=== PATIENT | male | born 1940 | race Caucasian/White ===

== ENCOUNTER 2018-11-16 04:49 | Emergency (ER) | payer MEDICARE, OTHER, SELFPAY ==
[2018-11-16] VITALS (15 sets, daily range): BP systolic 123–185; BP diastolic 66–102; PULSE 56–89; RESP 15–27; TEMP 36.1–36.6; O2SAT 95–100; BMI 22.5
--- NOTE | 2018-11-16 04:51 | ED.RN ---
CALLED FOR EKG, NO OLD EKGS IN MUSE
--- NOTE | 2018-11-16 05:09 | EKG12_ITS ---
Test Reason : CP Blood Pressure : / mmHG Vent. Rate : 059 BPM Atrial Rate : 059 BPM P-R Int : 158 ms QRS Dur : 076 ms QT Int : 404 ms P-R-T Axes : 039 027 036 degrees QTc Int : 399 ms Sinus bradycardia Otherwise normal ECG Confirmed by FLOYD CHAMPAGNE, MADHAVI ([id number]), pictures editor SUSIE MATHEW ([id number]) on 11/20/2018 11:21:21 A M Referred By: VIRAL Confirmed By:CHANG BARRIENTOS MD
--- NOTE | 2018-11-16 05:09 | RAD_ITS ---
HISTORY: Chest Pain ADDITIONAL HISTORY: None provided. COMPARISON: None TECHNIQUE: Frontal chest radiograph. Number of images including paperwork: 1 FINDINGS: LUNGS AND PLEURA: No consolidation, mass or pleural effusion. CARDIAC SILHOUETTE: Unremarkable. MEDIASTINUM AND KARI: Aortic calcification and tortuosity. UPPER ABDOMEN: Unremarkable. SKELETON AND SOFT TISSUES: No acute findings. Degenerative changes. OTHER DEVICES AND HARDWARE: None. RAD/Chest 1 View (Portable) IMPRESSION: No acute cardiopulmonary abnormality. at 0604 Reported and signed by: Martha Rubin MD Electronically Signed: Martha Rubin MD at 6:04 EDT Tel , Service support ,
[2018-11-16] MEDS: 0.9% Normal Saline 1,000 ML 1000 ML IV (05:26)
[2018-11-16 05:28] LABS: Absolute Lymphocyte Count 1.51 X10^3/uL (0.83-4.51); Absolute Neutrophil Count 2.8 X10^3/uL (2.0-7.7); Basophil# 0.05 X10^3/uL; Basophil% 0.9 % (0-1); Eosinophil# 0.17 X10^3/uL; Eosinophils% 3.2 % (0-5); Hematocrit 37.5 % (40-54); Hemoglobin 13.2 g/dL (13.0-16.5); Lymphocyte # 1.51 X10^3/ul (4.0); Lymphocyte % 28.7 % (19-41); Mean Corp Hgb Conc 35.2 g/dL (32-36); Mean Corpuscular Hgb 30.6 pg (27.0-32.0); Mean Platelet Vol. 10.8 fl (6.2-12.0); Monocyte# 0.69 X10^3/uL; Monocyte% 13.1 % (0-10); NRBC Flagged by Analyzer 0 % (0-5); Neutrophil # 2.83 X10^3/uL (2.7-7.7); Neutrophil % 53.7 % (47-70); Platelet Count 168 K/mm3 (150-450); RBC Distribution Width CV 13.2 % (11.6-14.6); RBC Distribution Width SD 41.6 fl (35.1-43.9); Red Blood Count 4.31 M/mm3 (4.6-6.2); White Blood Count 5.3 K/mm3 (4.4-11.0)
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
[2018-11-16 05:45] LABS: Red Blood Cells-Urine 0 SEEN /hpf (0-5); Squamous Epithelial Cells - UA 0 SEEN /hpf (0-5)
[2018-11-16 05:46] LABS: Color, Urine Yellow (Yellow); Glucose, Dipstick Normal (Normal); Ketone-Dipstick 5 mg/dl (Negative); Leukocyte Esterase-Dipstick Negative /ul (Negative); Nitrite-Dipstick Negative (Negative); Occult Blood-Urine Negative /ul (Negative); Protein-Dipstick Negative (Negative); Urine Bilirubin Dipstick Negative (Negative); Urine Clarity Clear (Clear); Urine Urobilinogen Normal (Normal)
[2018-11-16 05:57] LABS: Anion Gap 11 (5-15); BUN 41 mg/dL (7-18); BUN/Creat Ratio 24.1 RATIO (10-20); Calcium,Total 9.6 mg/dL (8.5-10.1); Chloride 110 mmol/L (98-107); EST Glomerular Filtration Rate 42 mL/min (>60); Est Glom Filt Rate - Afr Amer 50 mL/min (>60); Estimated Creatinine Clearance 32.11 ml/min; Glucose 138 mg/dL (74-106); Potassium 5.2 mmol/L (3.5-5.1); Sodium Level 139 mmol/L (136-145)
[2018-11-16 06:04] LABS: Bacteria RARE /hpf (None Seen); White Blood Cells 0-5 SEEN /hpf (0-5)
[2018-11-16 06:05] LABS: Mucous, Urine RARE /hpf (<or=2+)
--- NOTE | 2018-11-16 07:07 | CT_ITS ---
STUDY: CT BRAIN WITHOUT CONTRAST REASON FOR EXAM: Male, 77 years old. Confusion RADIATION DOSAGE (If Supplied By Facility): CTDIvol = ( 44.99 ) mGy, DLP = ( 745.49 ) mGycm TECHNIQUE: Transaxial CT imaging of the brain was performed without administration of intravenous contrast material. Individualized dose optimization techniques were used for this CT. COMPARISON: No relevant priors. FINDINGS: Normal soft tissue structures. Normal calvarium. There is mild cerebral atrophy with widening of the extra-axial spaces and ventricular dilatation. There are areas of decreased attenuation within the white matter tracts of the supratentorial brain, consistent with microvascular disease changes. Normal basal ganglia and thalami. Normal brainstem. There is mild cerebellar atrophy. There is no intracranial hemorrhage. There are no findings of an acute ischemic infarction. Normal visualized paranasal sinuses. Chronic change of the bilateral mastoid air cells. CT/Brain/Head without Contrast IMPRESSION: Chronic involutional changes of the brain. No acute intracranial process. Chronic change of bilateral mastoid air cells. Electronically Signed: Blair Oh MD at 8:28 EDT Tel [phone], Service support ,
[2018-11-16 07:30] LABS: AST(SGOT) 24 U/L (15-37); Alanine Aminotransfer ALT/SGPT 19 U/L (16-61); Albumin, Serum 3.8 g/dL (3.2-5.0); Alkaline Phosphatase 56 U/L (45-117); Bilirubin, Direct 0.15 mg/dL (0.00-0.30); Globulin 3.1 g/dL (2.2-4.2); Protein, Total 6.9 g/dL (6.4-8.2)
[2018-11-16] MEDS: Acetaminophen 325 MG Tablet 650 MG PO (07:32)
[2018-11-16] MEDS: 0.9% Normal Saline 1,000 ML 150 ML IV (07:32)
[2018-11-16 07:47] LABS: Amphetamine Urine VISTA NEGATIVE (<1000 ng/mL); Barbiturate Urine VISTA NEGATIVE (< 200 ng/mL); Benzodiazepine Urine VISTA NEGATIVE (< 200 ng/mL); Cocaine Urine VISTA NEGATIVE (< 300 ng/mL); Ecstacy Urine VISTA NEGATIVE (< 500 ng/mL); Methadone Urine VISTA NEGATIVE (< 300 ng/mL); PCP Urine VISTA NEGATIVE (< 25 ng/mL); THC Urine VISTA NEGATIVE (< 50 ng/mL); Vista UDS pH Range 5
--- NOTE | 2018-11-16 08:12 | EKG12_ITS ---
Test Reason : CP Blood Pressure : / mmHG Vent. Rate : 060 BPM Atrial Rate : 060 BPM P-R Int : 168 ms QRS Dur : 070 ms QT Int : 428 ms P-R-T Axes : 051 025 059 degrees QTc Int : 428 ms Normal sinus rhythm Normal ECG Confirmed by FLOYD CHAMPAGNE, MADHAVI ([id number]), social media editor SUSIE MATHEW ([id number]) on 11/20/2018 11:21:35 A M Referred By: HUGH Confirmed By:CHANG BARRIENTOS MD
[2018-11-16 08:24] LABS: Thyroid Stim Hormone (TSH) 1.24 uIU/mL (0.358-3.74)
[2018-11-16 08:27] LABS: Alcohol, Blood (Medical)-Serum < 3.0 mg/dL
[2018-11-16] MEDS: Mag Hydrox/Al Hydrox/Simeth 30 ML UDC PO (08:41)
--- NOTE | 2018-11-16 08:53 | ED.RN ---
PT VOMITING AFTER TAKING LIDOCAINE AND MYLANTA-DR SCOTT AWARE-PRESENT IN ROOM.
--- NOTE | 2018-11-16 17:23 | ED.RN ---
daughter was called at pt request. she was informed of pt plan of care and his concerns about having no visitors. daughter stated we have to take the dog to the vet then we will be there. message given to patient. abbey griffith rn
== END 2018-11-16 19:46 ==
PROVIDERS: Emergency Provider Emergency Medicine; Family Provider Internal Medicine; PCP Internal Medicine
DX: R07.9 Chest pain, unspecified (principal); G30.9 Alzheimer's disease, unspecified; F02.81 Dementia in other diseases classified elsewhere, unspecified severity, with behavioral disturbance; I25.10 Atherosclerotic heart disease of native coronary artery without angina pectoris; E11.22 Type 2 diabetes mellitus with diabetic chronic kidney disease; I12.9 Hypertensive chronic kidney disease with stage 1 through stage 4 chronic kidney disease, or unspecified chronic kidney disease; N18.9 Chronic kidney disease, unspecified; K21.9 Gastro-esophageal reflux disease without esophagitis; E78.00 Pure hypercholesterolemia, unspecified; F32.9 Major depressive disorder, single episode, unspecified; Z86.73 Personal history of transient ischemic attack (TIA), and cerebral infarction without residual deficits; Z95.1 Presence of aortocoronary bypass graft; Z79.82 Long term (current) use of aspirin; Z79.84 Long term (current) use of oral hypoglycemic drugs; Z79.02 Long term (current) use of antithrombotics/antiplatelets; Z79.899 Other long term (current) drug therapy
CPT/HCPCS: 70450; 71045; 80048; 80076; 80307; 80320; 81001; 84443; 84484; 85025; 93005; 96360; 96361; 99285; J7030; A4216; G0480

== ENCOUNTER 2019-03-29 12:51 | Emergency (ER) | payer MEDICARE, OTHER, SELFPAY ==
[2018-11-16 04:50] VITALS: BMI 22.5
[2019-03-29 12:53] VITALS: BP 125/65; PULSE 54; RESP 14; TEMP 36.8; O2SAT 94; BMI 28.4
--- NOTE | 2019-03-29 13:20 | CT_ITS ---
STUDY: CT BRAIN WITHOUT CONTRAST REASON FOR EXAM: Male, 78 years old. FALL OUT OF CHAIR AT [facility] -- CONTUSION TO BACK OF HEAD, NO LOC,ON THINNERS RADIATION DOSAGE (If Supplied By Facility): CTDIvol = ( 60.81 ) mGy, DLP = ( 998.67 ) mGycm TECHNIQUE: Transaxial CT imaging of the brain was performed without administration of intravenous contrast material. Individualized dose optimization techniques were used for this CT. COMPARISON: No relevant priors. FINDINGS: Normal soft tissue structures. Normal calvarium. There is moderate cerebral atrophy with widening of the extra-axial spaces and ventricular dilatation. There are areas of decreased attenuation within the white matter tracts of the supratentorial brain, consistent with microvascular disease changes. Normal basal ganglia and thalami. Normal brainstem. Normal cerebellum. There is no intracranial hemorrhage. There is no large vessel territory ischemia/edema. Review of intracranial vessels suggest a 3.9 mm aneurysm or infundibulum at the region of the right P1 vascular segment. Normal visualized paranasal sinuses. CT/Brain/Head without Contrast IMPRESSION: No acute intracranial pathology. Potential 3.9 mm aneurysm or infundibulum at the region of the distal right P1 vascular segment. Volume loss/atrophy, felt age-appropriate. Findings involving bilateral supratentorial periventricular white matter are nonspecific but most likely represent a manifestation of chronic small vessel ischemia. Electronically Signed: Bob Charles MD at 14:00 EST , Service support ,
--- NOTE | 2019-03-29 13:20 | CT_ITS ---
STUDY: CT CERVICAL SPINE WITHOUT CONTRAST REASON FOR EXAM: Male, 78 years old. FELL OUT OF CHAIR AT [facility] -- CONTUSION TO BACK OF HEAD,NO LOC, ON THINNERS -- HX-PROSTATE CA RADIATION DOSAGE (If Supplied By Facility): CTDIvol = ( 60.81 ) mGy, DLP = ( 998.67 ) mGycm TECHNIQUE: High resolution transaxial imaging was performed without contrast material. Sagittal and coronal images were reconstructed. Individualized dose optimization techniques were used for this CT. COMPARISON: None FINDINGS: There is straightening of the cervical spine without listhesis. There is moderate to severe diffuse spondylosis. There is moderate C3-C4, C4-C5 and C5-C6 degenerative disc disease. There is no acute fracture lucency, cortical step-off or acute compression deformity. Diffuse vertebral body sclerosis involves the mid and inferior aspect of C4 and the upper/subendplate region of C5. This may be consistent with blastic metastasis in this patient with provided clinical history of prostate cancer. Normal visualized soft tissue structures. CT/Spine Cervical without Contras IMPRESSION: No CT evident acute traumatic osseous pathology. Spondylosis and degenerative disc disease. 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 Electronically Signed: Bob Charles MD at 14:07 EST , Service support ,
[2019-03-29 13:44] VITALS: BP 139/67; O2SAT 96
[2019-03-29 14:21] VITALS: PULSE 84; RESP 16; O2SAT 98
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
[2019-03-29 14:56] VITALS: BP 148/78
--- NOTE | 2019-03-29 15:00 | ED.RN ---
report called to Maryellen at [facility]. pt and are in waiting room waiting for daughter to pick them up and take pt back to [facility].
== END 2019-03-29 14:59 | disposition home or self-care (01) ==
PROVIDERS: Emergency Provider Emergency Medicine; Family Provider Internal Medicine; PCP Internal Medicine
DX: S00.03XA Contusion of scalp, initial encounter (principal); W50.0XXA Accidental hit or strike by another person, initial encounter; Y93.9 Activity, unspecified; Y92.9 Unspecified place or not applicable; Z85.46 Personal history of malignant neoplasm of prostate; Z79.02 Long term (current) use of antithrombotics/antiplatelets
CPT/HCPCS: 70450; 72125; 99284

== ENCOUNTER → 2019-04-11 13:38 | Outpatient (CLI) | payer MEDICARE, OTHER, SELFPAY ==
[2019-03-29 12:53] VITALS: BMI 28.4
--- NOTE | 2019-04-11 13:44 | CT_ITS ---
STUDY: CT SOFT TISSUE NECK WITH CONTRAST REASON FOR EXAM: Male, 78 years old. PROSTATE CANCER 18 YEARS AGO. PROSTATE REMOVED WITH RADIATION. EVALUATE FOR METS RADIATION DOSAGE (If Supplied By Facility): CTDIvol = ( 17.10 ) mGy, DLP = ( 1172.52 ) mGycm TECHNIQUE: The patient was scanned in a multi-detector CT scanner. High resolution transaxial imaging was performed following intravenous administration of IV 100mL Isovue-300. Sagittal and coronal images were reconstructed. Individualized dose optimization techniques were used for this CT. COMPARISON: None. FINDINGS: Normal bilateral parotid glands. Normal bilateral housing installer spaces. Normal bilateral parapharyngeal spaces. Normal bilateral carotid spaces. Normal bilateral sublingual and submandibular glands and spaces. Normal visualized nasopharynx. Normal retropharyngeal space. Normal perivertebral space. Normal visualized bilateral faucial tonsils. The visualized tongue, tongue base and oropharynx are normal. The visualized cervical lymph nodes (levels I-) are within normal size limits, and maintain normal morphology. There is no demonstrated solid or cystic mass lesion. There is no abnormal contrast enhancement. Normal epiglottis, bilateral vallecula and hypopharynx. The pre-epiglottic and paraglottic adipose spaces are normal. Normal visualized bilateral piriform sinuses, aryepiglottic folds, vocal cords, and arytenoid-cricoid articulations. Normal subglottic trachea. Normal bilateral lobes of the thyroid gland. Normal visualized pulmonary apices. Normal visualized paranasal sinuses. There is diffuse endplate spondylosis of the cervical spine. There are sclerotic changes of the C4 and C5 vertebral bodies. CT/Soft Tissue Neck WITH Contrast IMPRESSION: Diffuse degenerative changes of the cervical spine. Sclerotic changes of the C4 and C5 vertebral bodies raising the suspicion of metastatic disease. There is no evidence of cervical mass or adenopathy. Electronically Signed: Liam Clayton MD at 21:04 EST , Service support ,
--- NOTE | 2019-04-11 13:44 | CT_ITS ---
STUDY: CT CHEST WITH CONTRAST REASON FOR EXAM: Male, 78 years old. PROSTATE CANCER 18 YEARS AGO . REMOVED PROSTATE AND RADIATION. EVALUATE FOR METS RADIATION DOSAGE (If Supplied By Facility): CTDIvol = ( 17.10 ) mGy, DLP = ( 1172.52 ) mGycm TECHNIQUE: Transaxial imaging was performed following intravenous administration of IV 100mL Isovue-300. Individualized dose optimization techniques were used for this CT. COMPARISON: None. FINDINGS: The lungs are normal. There is no demonstrated pleural abnormality. Coronary arterial stents are noted. Normal mediastinum. There is a right infrahilar nodule or node measuring 1.7 x 1.9 cm. This is inferior to the inferior right pulmonary vein. Normal enhanced pulmonary arteries. There are calcified plaques of the thoracic aorta. There are diffuse degenerative changes of the visualized thoracolumbar spine. There is no evidence of osseous metastatic disease. Cholelithiasis is noted. CT/Chest WITH Contrast IMPRESSION: There is a right infrahilar node or nodule inferior to the inferior right pulmonary vein measuring 1.7 x 1.9 cm. If clinically indicated, a PET scan may be helpful for further evaluation. Coronary arterial stents are noted. There are diffuse degenerative changes of the visualized thoracolumbar spine. There is no evidence of osseous metastatic disease. Cholelithiasis. Electronically Signed: Liam Clayton MD at 20:51 EST , Service support ,
[2019-04-11 14:01] LABS: CREATININE FINGERSTICK 1.2 mg/dL (0.70-1.30)
== END ==
PROVIDERS: Family Provider Internal Medicine; PCP Internal Medicine; Referring Provider Psychiatry & Neurology Neurology; Visit Provider Psychiatry & Neurology Neurology
DX: C79.9 Secondary malignant neoplasm of unspecified site (principal)
CPT/HCPCS: 70491; 71260; Q9967

== ENCOUNTER 2019-04-23 16:58 | Emergency (ER) | payer MEDICARE, OTHER, SELFPAY ==
[2019-04-23 16:58] VITALS: BP 166/88; PULSE 57; RESP 18; TEMP 36.6; O2SAT 98; BMI 26.6
--- NOTE | 2019-04-23 17:19 | EKG12_ITS ---
Test Reason : NUMBNESS/TINGLING Blood Pressure : / mmHG Vent. Rate : 055 BPM Atrial Rate : 055 BPM P-R Int : 184 ms QRS Dur : 066 ms QT Int : 442 ms P-R-T Axes : 025 017 031 degrees QTc Int : 422 ms Sinus bradycardia Otherwise normal ECG Confirmed by MARTIN CHAMPAGNE, JESUSITA ([id number]), editor department SUSIE MATHEW ([id number]) on 04/25/2019 1:42:33 PM Referred By: JEZ Confirmed By:JESUSITA SALAZAR MD
--- NOTE | 2019-04-23 17:19 | CT_ITS ---
STUDY: CT BRAIN WITHOUT CONTRAST REASON FOR EXAM: Male, 78 years old. RIGHT ARM PARASTHESIS FOR WEEKS -- HX:HTN,SEIZURES,DIABETES,MD,PROSTATE CANCER RADIATION DOSAGE (If Supplied By Facility): CTDIvol = ( 44.99 ) mGy, DLP = ( 779.24 ) mGycm TECHNIQUE: Transaxial CT imaging of the brain was performed without administration of intravenous contrast material. Individualized dose optimization techniques were used for this CT. COMPARISON: Prior study March 29, 2019 FINDINGS: Normal soft tissue structures. Normal calvarium. There is mild cerebral atrophy with widening of the extra-axial spaces and ventricular dilatation. There are areas of decreased attenuation within the white matter tracts of the supratentorial brain, consistent with microvascular disease changes. Normal basal ganglia and thalami. Normal brainstem. Normal cerebellum. There is no intracranial hemorrhage. There are no findings of an acute ischemic infarction. Normal visualized paranasal sinuses. CT/Brain/Head without Contrast IMPRESSION: Chronic involutional changes of the brain. Electronically Signed: Liam Clayton MD at 18:24 EST , Service support ,
--- NOTE | 2019-04-23 17:22 | RAD_ITS ---
STUDY: X-RAY CHEST REASON FOR EXAM: Male, 78 years old. WEAKNESS TECHNIQUE: Single AP portable view of the chest. COMPARISON: Prior study of 11/16/2018 FINDINGS: The lungs are clear and expanded. There is no demonstrated pleural abnormality. Normal size heart. Normal mediastinum and seter. Normal visualized pulmonary arteries. There are calcified plaques of the aortic arch. Normal visualized thoracic spine. Normal visualized ribs, clavicles, and shoulders. There is no demonstrated abnormality of the visualized soft tissue structures of the upper abdomen. RAD/Chest 1 View IMPRESSION: Calcific plaques of the aortic arch. No acute cardiopulmonary disease process is seen. Electronically Signed: Liam Clayton MD at 17:48 EST , Service support ,
[2019-04-23 17:44] VITALS: O2SAT 98
[2019-04-23 17:46] LABS: Bedside Glucose 73 mg/dL (70-110)
[2019-04-23 17:48] LABS: Absolute Lymphocyte Count 1.65 X10^3/uL (0.83-4.51); Absolute Neutrophil Count 4.5 X10^3/uL (2.0-7.7); Basophil# 0.04 X10^3/uL; Basophil% 0.6 % (0-1); Eosinophil# 0.25 X10^3/uL; Eosinophils% 3.5 % (0-5); Hemoglobin 13.8 g/dL (13.0-16.5); Lymphocyte # 1.65 X10^3/ul (4.0); Lymphocyte % 22.9 % (19-41); Mean Corp Hgb Conc 33.7 g/dL (32-36); Mean Corpuscular Hgb 29.3 pg (27.0-32.0); Mean Platelet Vol. 10.4 fl (6.2-12.0); Monocyte# 0.73 X10^3/uL; Monocyte% 10.1 % (0-10); NRBC Flagged by Analyzer 0 % (0-5); Neutrophil # 4.53 X10^3/uL (2.7-7.7); Neutrophil % 62.6 % (47-70); Platelet Count 208 K/mm3 (150-450); RBC Distribution Width CV 13.6 % (11.6-14.6); Red Blood Count 4.71 M/mm3 (4.6-6.2); White Blood Count 7.2 K/mm3 (4.4-11.0)
[2019-04-23 18:00] LABS: International Normalized Ratio 1.1
[2019-04-23 18:07] LABS: Anion Gap 3 (5-15); BUN 13 mg/dL (7-18); BUN/Creat Ratio 8.7 RATIO (10-20); Calcium,Total 9.8 mg/dL (8.5-10.1); Chloride 105 mmol/L (98-107); EST Glomerular Filtration Rate 48 mL/min (>60); Est Glom Filt Rate - Afr Amer 58 mL/min (>60); Estimated Creatinine Clearance 36.04 ml/min; Glucose 59 mg/dL (74-106); Potassium 4.1 mmol/L (3.5-5.1); Sodium Level 139 mmol/L (136-145)
--- NOTE | 2019-04-23 20:37 | ED.DCSUM_ITS ---
- ER Visit Summary Date of Service: 04/23/19 Chief Complaint: Paresthesias History of Present Illness: The patient is a 78 M with right hand paresthesias. These have been going on for weeks, but that patient has baseline dementia and difficulty with his history. Family noticed that he was not using his right hand today. The patient says it is secondary to the paresthesias. The patient has recently been imaged. He has a cerebral aneurysm which is being monitored nonoperatively. He also has some cervical spine changes which are concerning for malignancy, and this is also being managed as an outpatient. He is awaiting a PET scan. Denies any other neurologic symptoms or complaints. Denies any o ther associated complaints. Physical Examination: Afebrile and vital signs unremarkable. NIH stroke scale is 1 for right arm paresthesias. Otherwise his exam is unremarkable. Test Results: EKG showed sinus rhythm. Rate of 55. No sign of ischemia or infarction pattern. CBC, BMP, coags, troponin unremarkable. Chest x-ray showed calcified aortic arch. CT brain showed chronic changes. Emergency Department Course and Treatment: Family was concerned for intermittent loss of function of his right arm. He has a history of stroke. They were concerned for stroke. His work-up so far was unremarkable. I reviewed his previous imaging. It seems like his symptoms might be related to his cervical spine lesions. I am recommending further imaging to rule out stroke and other spinous processes. I recommended admission for MRI. I spoke to the hospitalist who felt that the patient should go to a facility with spine surgery capabilities. I advised the family and patient of this, and they declined transfer. They would like to follow-up as an outpatient. I did attempt to contact his PCP, but I was unsuccessful at the time of this dictation. Treatment Plan: As above Disposition: Discharge Impression: 1. Right arm paresthesias This note was generated with [employer] dictation software. It may contain incorrect words, spelling, and punctuation that were not noted in review of the chart prior to signing ED Disposition - Plan for ED Patient: Referrals: Praveen Mcgowan [Primary Care Provider] -
--- NOTE | 2019-04-23 20:41 | ED.DEP ---
ED Disposition - Plan for ED Patient: Instructions: Paraesthesias Referrals: Praveen Mcgowan [Primary Care Provider] -
[2019-04-23 20:52] VITALS: BP 174/77; PULSE 56; RESP 22; O2SAT 96
== END 2019-04-23 20:52 | disposition home or self-care (01) ==
LOC: ED 17:27
PROVIDERS: Emergency Provider Emergency Medicine; PCP Internal Medicine
DX: R20.2 Paresthesia of skin (principal); I67.1 Cerebral aneurysm, nonruptured; I70.0 Atherosclerosis of aorta; F03.90 Unspecified dementia, unspecified severity, without behavioral disturbance, psychotic disturbance, mood disturbance, and anxiety; Z86.73 Personal history of transient ischemic attack (TIA), and cerebral infarction without residual deficits; Z79.82 Long term (current) use of aspirin; Z79.02 Long term (current) use of antithrombotics/antiplatelets; Z79.899 Other long term (current) drug therapy; Z87.891 Personal history of nicotine dependence
CPT/HCPCS: 70450; 71045; 80048; 82962; 84484; 85025; 85610; 85730; 93005; 99285; A4216

== ENCOUNTER 2019-04-27 18:05 | Inpatient (IN) | payer MEDICARE, OTHER, SELFPAY ==
[2019-04-27] VITALS (8 sets, daily range): BP systolic 127–175; BP diastolic 68–95; PULSE 64–75; RESP 16–29; TEMP 36.1–36.6; O2SAT 94–955; BMI 24.8; BMI 25.0; BMI 25.1
--- NOTE | 2019-04-27 18:27 | EKG12_ITS ---
Test Reason : DYSRHYTHMIA Blood Pressure : / mmHG Vent. Rate : 062 BPM Atrial Rate : 062 BPM P-R Int : 166 ms QRS Dur : 076 ms QT Int : 424 ms P-R-T Axes : 043 018 039 degrees QTc Int : 430 ms Normal sinus rhythm Normal ECG Confirmed by MARTIN CHAMPAGNE, JESUSITA ([id number]), medical editor VALERIA HIGGINS ([id number]) on 04/30/2019 3:39:24 PM Referred By: JANINE Confirmed By:JESUSITA SALAZAR MD
--- NOTE | 2019-04-27 18:27 | CT_ITS ---
STUDY: CT BRAIN WITHOUT CONTRAST REASON FOR EXAM: Male, 78 years old. FREQUENT FALLS, SLUMPS OVER AND DRAGS LEG, COUGH RADIATION DOSAGE (If Supplied By Facility): CTDIvol = ( 44.99 ) mGy, DLP = ( 796.11 ) mGycm TECHNIQUE: Transaxial CT imaging of the brain was performed without administration of intravenous contrast material. Individualized dose optimization techniques were used for this CT. COMPARISON: April 23, 2019 FINDINGS: Normal soft tissue structures. Normal calvarium. Moderate atrophy and advanced periventricular white matter ischemic changes.. Normal basal ganglia and thalami. Normal brainstem. Normal cerebellum. Empty sella deformity of uncertain clinical significance. There is no intracranial hemorrhage. There are no findings of an acute ischemic infarction. Normal visualized paranasal sinuses. No significant changes prior exam CT/Brain/Head without Contrast IMPRESSION: Atrophy and advanced periventricular white matter ischemic changes. No evidence for acute bleed. If concern for acute infarct MRI recommended Electronically Signed: Eric Pizarro MD at 19:42 EST , Service support ,
--- NOTE | 2019-04-27 18:40 | RAD_ITS ---
STUDY: X-RAY CHEST REASON FOR EXAM: Male, 78 years old. MULTIPLE FALLS TODAY, WEAKNESS, CONFUSION TECHNIQUE: AP portable COMPARISON: April 23, 2019 FINDINGS: There is mild interstitial thickening in both lower lobes. There is mild discoid atelectasis at the right base.. There is no demonstrated pleural abnormality. Normal size heart. Normal mediastinum and ester. Normal visualized pulmonary arteries. Tortuous aortic arch and descending thoracic aorta. Dorsal spine demonstrates degenerative changes. Normal visualized ribs, clavicles, and shoulders. There is no demonstrated abnormality of the visualized soft tissue structures of the upper abdomen. RAD/Chest 1 View (Portable) IMPRESSION: There is discoid atelectasis in the right lower lobe. Electronically Signed: Eric Pizarro MD at 19:04 EST , Service support ,
[2019-04-27] MEDS: 0.9% Normal Saline 1,000 ML 150 ML IV (19:07)
[2019-04-27 19:10] LABS: Absolute Lymphocyte Count 0.91 X10^3/uL (0.83-4.51); Absolute Neutrophil Count 4.2 X10^3/uL (2.0-7.7); Basophil# 0.04 X10^3/uL; Basophil% 0.7 % (0-1); Eosinophil# 0.17 X10^3/uL; Eosinophils% 2.8 % (0-5); Hematocrit 41.3 % (40-54); Hemoglobin 13.7 g/dL (13.0-16.5); Lymphocyte # 0.91 X10^3/ul (4.0); Mean Corp Hgb Conc 33.2 g/dL (32-36); Mean Corpuscular Hgb 29.1 pg (27.0-32.0); Mean Corpuscular Volume 87.7 fL (80-94); Mean Platelet Vol. 10.2 fl (6.2-12.0); Monocyte# 0.79 X10^3/uL; NRBC Flagged by Analyzer 0 % (0-5); Neutrophil # 4.15 X10^3/uL (2.7-7.7); Neutrophil % 68.2 % (47-70); Platelet Count 181 K/mm3 (150-450); RBC Distribution Width CV 13.8 % (11.6-14.6); Red Blood Count 4.71 M/mm3 (4.6-6.2); White Blood Count 6.1 K/mm3 (4.4-11.0)
[2019-04-27 19:27] LABS: Anion Gap 7 (5-15); BUN 16 mg/dL (7-18); BUN/Creat Ratio 8.6 RATIO (10-20); Calcium,Total 9.4 mg/dL (8.5-10.1); Chloride 104 mmol/L (98-107); Creatinine, Serum 1.86 mg/dL (0.70-1.30); EST Glomerular Filtration Rate 37 mL/min (>60); Est Glom Filt Rate - Afr Amer 45 mL/min (>60); Estimated Creatinine Clearance 29.06 ml/min; Glucose 177 mg/dL (74-106); Potassium 3.8 mmol/L (3.5-5.1); Sodium Level 139 mmol/L (136-145)
[2019-04-27 19:49] LABS: Lactic Acid 3.1 mmol/L (0.4-1.9)
--- NOTE | 2019-04-27 21:04 | ED.DCSUM_ITS ---
- ER Visit Summary Date of Service: 04/27/19 Chief Complaint: [Frequent falls, drooling, concern for possible stroke] History of Present Illness: The patient is a 78 M [to the emergency department with family including his and daughter who gives most of the history. Patient does have history of some dementia. Patient apparently has fallen 6 times in the last 5 days. Patient is thought to have right-sided weakness and the daughter states she actually noticed that he was not using his right hand a nd arm as well about a month ago. Patient also has had intermittent diarrhea and a week ago had a test for C. difficile which was negative however they were started on Flagyl anyway. Patient has been having trouble with coughing after eating and at times has gurgly respirations. Does have history of a brain aneurysm and has had recent evaluation by neurosurgeon. Patient also does have some sort of a mass on the cervical spine which was also evaluated by the neurosurgeon recently. Denies any chest or abdomen pain. He denies any bony injuries.] Physical Examination: [HEENT-PERRLA, EOMI. Cranial nerves II through XII grossly intact. TMs clear. Mucous membranes moist. No adenopathy. She does have some subtle ecchymosis about the left orbit. No C-spine tenderness on palpation. Cardiovascular-regular rate and rhythm without murmur or ectopy Lungs-clear to auscultation, chest wall stable without crepitus or subcu emphysema Abdomen-normoactive bowel sounds, soft, nontender, no rebound or rigidity, no peritoneal signs. Neuro exam-I do not appreciate any facial droop. I do not appreciate any significant difference between right and left side as far strength. Patient has normal sensation. Focal deficits noted. Extremities-intact ?4, normal range of motion, normal pulses, atraumatic] Test Results: [EKG obtained arrival shows sinus rhythm with a ventricular rate of 62 bpm with no acute ST segment changes. CBC with differential count 6.1, hemoglobin 13.7, hematocrit 41, plates 181. Chemistries unremarkable. BUN was 16 and creatinine 1.86. Troponin is less than 0.015. Lactate was 3.1. Chest x-ray showed right lower lobe atelectasis. CT scan of the brain showed atrophy no bridge.] Emergency Department Course and Treatment: [Patient had an IV line established and was placed on a radiation monitor.] Treatment Plan: [Case was discussed with hospitalist who will evaluate patient for admission.] Disposition: [Admit] Impression: [Frequent falls Weakness Diarrhea] This note was generated with [employer] dictation software. It may contain incorrect words, spelling, and punctuation that were not noted in review of the chart prior to signing ED Disposition - Plan for ED Patient: Referrals: Praveen Mcgowan [Primary Care Provider] -
--- NOTE | 2019-04-27 22:06 | HP.PCM_ITS ---
Problem List (1) Seizure disorder Status: Chronic (2) Pulmonary nodule, right Status: Chronic (3) Brain aneurysm Status: Chronic (4) Depression Status: Chronic (5) Stage III chronic kidney disease Status: Chronic (6) Hyperlipidemia Status: Chronic (7) Type 2 diabetes mellitus Status: Chronic (8) Dementia Status: Chronic (9) Coronary artery disease Status: Chronic Comment: Status post stents. History of Present Illness Date of Admission: 04/27/19 Chief Complaint: Frequent falls, worsening right side body weakness, drooling. The patient is a 78 year old M patient with multiple medical comorbidities and complicated medical history presented to the emergency room because of multiple complaints including frequent falls, drooling and reported worsening right-sided body weakness. The patient has dementia and he was not able to provide detailed history and he was a poor informant. Although he was oriented x3, but he was not able to provide consistent history. Patient's and daughter were at the bedside and I got most of the information from the daughter. The patient this time complained of weakness on the right side as well as drooling which has been going on for several weeks. According to the patient's daughter, patient was seen by Dr. Cho, the oncologist, for right lung nodule which is suspected to be due to cancer and sent this patient to ED for evaluation for worsening right side body weakness. Patient's daughter mentioned that her father had a history of stroke with minimal right-sided body weakness. She stated that over the last several weeks up to 2 months, the weakness on the right side seemed to be worsening. Patient has been dragging his right leg in the last couple of weeks and he has been using his left hand more than his right hand. Patient has been falling more frequently at home, he had fallen 6 times in the last 5 days. Patient's daughter mentioned that her father has been having drooling of the saliva from his mouth in the center of his mouth but not on the corners. Patient's mentioned that patient has been having aspiration and choking up on eating or drinking which is intermittently. Patient has been having intermittent diarrhea and he tested negative for C. difficile and he was started on Flagyl by his PCP. He had CT scan brain without contrast on March 29, 2019 after he had fall with head trauma and he was found to have brain aneurysm measuring around 3.9 mm at the region of the distal right P1 vascular segment. Patient was referred to neurosurgery as outpatient and he saw Dr. Rai at [facility] and according to the daughter, it was recommended that patient can follow-up with them as outpatient in 5 years and they were informed that the risk of rupture is 2.5%. Patient had a CT scan chest with contrast that was done for follow-up for prostate cancer looking for metastasis and he was found to have right infrahilar nodule measuring 1.7 x 1.9 cm. He was evaluated by Dr. Cho today and the plan is to have PET scan done as outpatient on May 14, 2019 according to the patient's daughter. In the emergency department, his blood pressure was slight elevated, other vital signs were stable. Routine blood work was remarkable for creatinine of 1.86, otherwise normal. Lactic acid was 3.1. Troponin was negative. Chest x-ray showed no acute infiltrate, consolidation or effusion. CT scan brain showed no acute infarct or hemorrhage. He is being admitted for worsening of right-sided weakness/drooling/aspiration with concern for stroke as well as frequent falls, physical debility and functional decline and also found to have lactic acidosis of unclear etiology. Past Medical History Past Medical History (Chronic Problems): Chronic Problems History of prostate cancer (Chronic) Status post prostatectomy History of stroke (Chronic) Seizure disorder (Chronic) Pulmonary nodule, right (Chronic) Brain aneurysm (Chronic) Depression (Chronic) Stage III chronic kidney disease (Chronic) Hyperlipidemia (Chronic) Type 2 diabetes mellitus (Chronic) Dementia (Chronic) Coronary artery disease (Chronic) Status post stents. Allergies No Known Allergies Allergy (Verified 04/23/19 17:01) Home Medications: Ambulatory Orders Medication Instructions Recorded Aspirin [Aspirin, Baby] 81 mg PO QODAY 11/16/18 Clopidogrel Bisulfate [Plavix] 75 mg PO DAILY 11/16/18 Ferrous Sulfate 325 mg PO DAILY@0800 11/16/18 Levetiracetam [Keppra] 750 mg PO BID 11/16/18 Metformin HCl 1,000 mg PO BID 11/16/18 Omeprazole [Prilosec] 20 mg PO DAILY 11/16/18 Rosuvastatin Calcium 20 mg PO DAILY 11/16/18 Cholecalciferol (Vitamin D3) 2,000 unit PO DAILY 04/23/19 [Vitamin D3] Citalopram [Celexa] 20 mg PO QHS 04/23/19 Donepezil HCl [Aricept] 10 mg PO QHS 04/23/19 Lamotrigine 25 mg PO DAILY 04/23/19 Losartan Potassium [Cozaar] 100 mg PO DAILY 04/23/19 Olanzapine [Zyprexa] 5 mg PO QHS 04/23/19 traZODone [Desyrel] 25 mg PO QHS 04/23/19 Glimepiride [Amaryl] 4 mg PO DAILY 04/27/19 Metoprolol Tartrate 25 mg PO BID 04/27/19 Metronidazole [Flagyl] 500 mg PO TID 04/27/19 Oxybutynin Chloride [Oxybutynin 10 mg PO DAILY 04/27/19 Chloride ER] Surgical History: herniorrhaphy, - - Prostatectomy, cardiac stents. Psychiatric History: Depression Lives: - - Assisted living. Smoking Status: Former smoker Alcohol: None Drugs: None - *Family History Maternal History Items: No pertinent history Paternal History Items: No pertinent history Review of Systems Constitutional: Reports: Weakness. Denies: Anorexia, Chills, Fever Eyes: Denies: Blurred vision, Double vision, Drainage, Redness HEENT: Denies: Difficulty Hearing, Ear Pain, Eye Pain, Nasal Congestion, Sore Throat Cardiovascular: Denies: Chest Pain, Chest Pressure, Chest Tightness, Heaviness, Light Headedness, Palpitations, Syncope Respiratory: Denies: Cough, Pleuritic Pain, Shortness of Breath, Sputum production, Wheezing Gastrointestinal: Denies: Abdominal Pain, Constipation, Diarrhea, Nausea, Vomiting Genitourinary: Denies: Dysuria, Frequency, Hematuria Musculoskeletal: Denies: Arm Pain, Back Pain, Foot Pain Skin: Denies: Dryness, Rash Neurological: Reports: Balance problems, Incoordination, - - Drooling.. Denies: Double vision, Change in Speech, Confusion, Numbness, Tingling Psychiatric: Reports: Depression. Denies: Anxiety Endocrine: Denies: Change in Body Habitus, Polydipsia, Polyuria VTE Information - Inpt Only VTE Present on Admission: No VTE Mechan Device Prophylaxis: None VTE Pharm Prophylaxis ordered?: Yes - Physical Exam Vitals/I&O's: Vital Signs Temp Pulse Resp BP Pulse Ox 97.0 F L 64 29 H 164/95 H 94 04/27/19 18:06 04/27/19 21:16 04/27/19 21:16 04/27/19 21:16 04/27/19 21:16 Oxygen Delivery Method Room Air Weight: 154 lb Body Mass Index (BMI) 24.8 Finger Stick Blood Glucose 73 General: Alert, Oriented x3, Cooperative, No apparent distress HEENT: PERRLA, EOMI, Normocephalic, - - Traumatic, left periorbital ecchymosis. Oral: Moist Mucosa, No Gingival or Mucosal Lesions/ Ulcerations Neck: Supple, No JVD, Negative Carotid Bruits, Trachea Midline, Thyroid Normal Size and Texture Lungs: Clear to auscultation, Normal air movement, No rhonchi, No wheeze, No rales, Diminished Cardiovascular: Regular rate, Regular Rhythm, Normal S1, Normal S2, PMI Normal, Murmur Abdomen: Bowel Sounds Present, Soft, Non Tender, Non-Distended, No Hepato- splenomegaly Extremities: No clubbing, No cyanosis, No edema Skin: No rashes Lymphatic: No Cervical, Supraclavicular, or Inguinal Adenopathy Neurological: Cranial nerves II-XII grossly intact, - - Right-sided weakness, left lower extremity drift, minimal drift on the left upper extremity. Psych/Mental Status: Normal Affect, Appropriate, Alert and oriented to time, place, person, mood and affect Laboratory Results 04/27/19 19:00: WBC 6.1, RBC 4.71, Hgb 13.7, Hct 41.3, MCV 87.7, MCH 29.1, MCHC 33.2, RDW Std Deviation 44.0 H, RDW Coeff of [place] 13.8, Plt Count 181, MPV 10.2, Immature Gran % (Auto) 0.300, Neut % (Auto) 68.2, Lymph % (Auto) 15.0 L, [place] % (Auto) 13.0 H, Eos % (Auto) 2.8, Baso % (Auto) 0.7, Absolute Neuts (auto) 4.2, Absolute Lymphs (auto) 0.91, Nucleated RBC % 0 04/27/19 19:00: Sodium 139, Potassium 3.8, Chloride 104, Carbon Dioxide 28.0, Anion Gap 7, BUN 16, Creatinine 1.86 H, Estim Creat Clear Calc 29.06, Est GFR (MDRD) Af Amer 45 L, Est GFR (MDRD) Non-Af 37 L, BUN/Creatinine Ratio 8.6 L, Glucose 177 H, Calcium 9.4, Troponin I < 0.015 04/27/19 19:00: Lactic Acid 3.1 H* Clinical Impression(s) from Imaging Studies Brain CT 04/27/19 18:27 IMPRESSION: Atrophy and advanced periventricular white matter ischemic changes. No evidence for acute bleed. If concern for acute infarct MRI recommended Electronically Signed: Eric Pizarro MD at 19:42 EST , Service support , Chest X-Ray 04/27/19 18:40 IMPRESSION: There is discoid atelectasis in the right lower lobe. Electronically Signed: Eric Pizarro MD at 19:04 EST , Service support , Current Medications Sodium Chloride () 1,000 mls @ 150 mls/hr IV .[id number] VIET Last Admin: 04/27/19 19:07 Dose: 150 mls/hr Documented by: Assessment/Plan This is a 78 years old male patient was sent to ED from Dr. Cho's office for worsening right side body weakness, frequent falls, drooling, aspiration with concern of stroke, in context of recent diagnosis of cerebral aneurysm and he is being admitted for evaluation and patient may need placement to snf facility. #1 worsening right side body weakness/drooling/frequent falls/choking with aspiration: Unclear etiology. Patient does have a history of stroke in the past with minimal right side body weakness. Also, he was diagnosed recently with brain aneurysm as mentioned above. He does have drift on the right side which is more obvious on the right lower extremity. Patient's daughter mentioned that this weakness has been worsening over the last several weeks up to [address] scan brain showed no acute findings. Plan: Admit to PCU, cardiac monitoring, NIH stroke scale, MRI brain, MRA of the head and neck, IV fluids, IV antiemetics as needed, repeat BMP tomorrow morning. As the MRI brain came back positive for acute stroke, patient will need 2D echocardiogram. #2 lactic acidosis: Unclear duration, could be due to dehydration. Chest x-ray showed no acute pneumonia. Patient has been afebrile, no leukocytosis. Patient has been having intermittent diarrhea for which she has been on Flagyl. Plan: IV fluids, repeat lactic acid in 3 hours, urinalysis, stool for C. difficile. #3 recent diagnosis of cerebral aneurysm: He was seen by neurosurgery as outpatient, recommended follow-up in 2 years according to the patient's daughter . At this time, no clinical evidence of ruptured aneurysm. Plan as above, MRI brain, MRA head and neck. #4 right lung nodule: With suspicion of malignancy. Patient was seen by Dr. Cho, recommended PET scan as outpatient which will be done on May 14, 2019. Plan to follow-up with Dr. Cho as outpatient. #5 stage III chronic kidney disease: Baseline creatinine has been around 1.5 to 1.7 mg/dL. Admission creatinine is 1.86. Plan for IV fluids, p.o. acetylcysteine twice daily as patient will be getting IV contrast for the MRI, repeat BMP tomorrow morning. #6 CAD status post stents: Stable, continue aspirin, statins, Plavix, losartan and metoprolol. #7 type 2 diabetes mellitus: ADA diet, Accu-Cheks, insulin to scale, continue glimepiride, check hemoglobin A1c. #8 seizure disorder: Stable, continue Keppra and lamotrigine. #9 history of stroke: Plan as above, continue aspirin, Plavix and statins. #10 depression: Stable, continue Celexa and trazodone. #11 history of prostate cancer: Status post prostatectomy, in remission, stable. #12 CODE STATUS: DNR CCA. Discussed with the patient himself as well as his daughter and . I explained to them different types of CODE STATUS including full code, DNR CCA and DNR CC. Initially patient mentioned that he would be okay to do shocks if needed during the CPR couple of times and if he did not come back, we should let him go. I explained to the patient that shocking the heart during CPR is not always the case and is not routine for age patient. I explained to them that the shocking the heart is based on the type of the rhythm during the CPR process. After this, patient clearly mentioned that he does not want any aggressive measures, no CPR, no chest compressions, no intubation and no mechanical ventilation. Patient's and daughter were at the bedside and they agreed. #12 DVT prophylaxis: Subcu heparin. This note was generated with [employer] dictation software. It may contain incorrect words, spelling, and punctuation that were not noted in checking the note before signing. Code Visit Inpatient E&M: 78678 Init Hosp L3
[2019-04-27 23:04] LABS: Reflex Lactate? Y
[2019-04-27] MEDS: 0.9% Saline Lock 10 ML Syringe IV (23:28)
[2019-04-27] MEDS: 0.9% Normal Saline 1,000 ML 100 ML IV (23:28)
[2019-04-27 23:53] LABS: Lactic Acid 1.5 mmol/L (0.4-1.9)
[2019-04-27 23:56] LABS: Hemoglobin A1c 6.7 % (4.2-6.3)
[2019-04-28] VITALS (16 sets, daily range): BP systolic 147–161; BP diastolic 69–96; PULSE 68–84; RESP 14–22; TEMP 36.5–37.3; O2SAT 92–97
[2019-04-28] MEDS: Acetylcysteine (Mucomyst Oral) 20% SOLN 1200 MG PO (00:12)
[2019-04-28 00:40] LABS: Bedside Glucose 88 mg/dL (70-110)
[2019-04-28 06:28] LABS: Anion Gap 5 (5-15); BUN 13 mg/dL (7-18); Calcium,Total 8.5 mg/dL (8.5-10.1); Chloride 107 mmol/L (98-107); EST Glomerular Filtration Rate 57 mL/min (>60); Est Glom Filt Rate - Afr Amer 68 mL/min (>60); Estimated Creatinine Clearance 41.58 ml/min; Glucose 68 mg/dL (74-106); Potassium 3.4 mmol/L (3.5-5.1); Sodium Level 140 mmol/L (136-145)
[2019-04-28] MEDS: Dextrose 10%-Water 250 ML 999 ML IV (06:49)
[2019-04-28 07:06] LABS: Bacteria 0 SEEN /hpf (None Seen); Mucous, Urine 0 SEEN /hpf (<or=2+); Squamous Epithelial Cells - UA 0 SEEN /hpf (0-5)
[2019-04-28 07:10] LABS: Bedside Glucose 63 mg/dL (70-110)
[2019-04-28 07:10] LABS: Color, Urine Yellow (Yellow); Glucose, Dipstick Normal (Normal); Ketone-Dipstick Negative (Negative); Leukocyte Esterase-Dipstick Negative /ul (Negative); Nitrite-Dipstick Negative (Negative); Occult Blood-Urine Negative /ul (Negative); Protein-Dipstick 15 mg/dl (Negative); Specific Gravity, Urine 1.015 (1.002-1.030); Urine Bilirubin Dipstick Negative (Negative); Urine Clarity Clear (Clear); Urine Urobilinogen Normal (Normal)
[2019-04-28 07:19] LABS: Amorphous Sediment 1+; Red Blood Cells-Urine 0-5 SEEN /hpf (0-5); White Blood Cells 0-5 SEEN /hpf (0-5)
[2019-04-28 07:30] LABS: Bedside Glucose 111 mg/dL (70-110)
--- NOTE | 2019-04-28 08:00 | MRI_ITS ---
STUDY: MRI BRAIN WITHOUT CONTRAST REASON FOR EXAM: Male, 78 years old. RIGHT SIDE BODY WEAKNESS -- rt side weakness x 2 months, fall bruising lt eye, hx stroke and prostate cancer, patient hx states brain aneurysm with no surgery, new dx lung nodule TECHNIQUE: Standardized multiplanar fat and water weighted pulse sequences were obtained. COMPARISON: None. FINDINGS: There is moderate cerebral atrophy with widening of the extra-axial spaces and ventricular dilatation. There are multiple white matter hyperintensities, distributed throughout the deep white matter tracts of the cerebral hemispheres, consistent with moderate chronic white matter ischemic changes. There is no evidence for recent intracranial ischemia or other cause of cytotoxic edema on diffusion weighted imaging (DWI). Normal T2* images of the brain without demonstrated susceptibility artifact. There is no demonstrated hemosiderin stain. Normal bilateral basal ganglia. Normal thalami. There is no extra-axial fluid accumulation. Normal flow voids within the major intracranial circulation suggesting patency by spin echo criteria. Normal sella turcica, pituitary gland, infundibular stalk, optic chiasm and hypothalamus. Normal tectal plate and pineal gland. Normal midbrain, evonne and medulla. Normal cerebellum. Normal basal cisterns. Normal bilateral temporal bones. Normal bilateral internal auditory canals. No demonstrated orbital abnormality, within the constraints of a routine brain study. Normal visualized paranasal sinuses. Mild bilateral mastoid effusions are present, clinically correlate for congestive versus inflammatory process. Normal visualized soft tissue structures. Normal visualized upper cervical spine. MRI/Brain without Contrast IMPRESSION: Diffuse senescent changes as above with no evidence of acute intracranial bleed, mass or ischemia. Electronically Signed: Justyn Espinosa DO at 11:46 EST , Service support ,
--- NOTE | 2019-04-28 08:00 | MRI_ITS ---
STUDY: MRA NECK WITHOUT CONTRAST REASON FOR EXAM: Male, 78 years old. RIGHT SIDE BODY WEAKNESS TECHNIQUE: Source images were obtained, MIPs were performed. The study was performed unenhanced. COMPARISON: None. FINDINGS: RIGHT CAROTID ARTERIES: Antegrade flow within the right common carotid artery (CCA). Antegrade flow within the right carotid bulb. Antegrade flow within the right internal carotid (ICA) artery. Antegrade flow within the visualized cervical portion of the right internal carotid artery. LEFT CAROTID ARTERIES: Antegrade flow within the left common carotid artery (CCA). Antegrade flow within the left common carotid bulb. Antegrade flow within the origin of the left internal carotid (ICA) artery. Antegrade flow within the visualized cervical portion of the left internal carotid artery. VERTEBRAL ARTERIES: There is nonvisualization of the right vertebral artery. There is antegrade flow within the left vertebral artery. MRI/MRA Neck without Contrast IMPRESSION: Nonvisualization of the right vertebral artery, Occlusion versus atresia. Comparison with prior examinations if available or further evaluation with CTA is recommended. Electronically Signed: Darrius Ortiz MD at 11:51 EST Tel , Service support ,
--- NOTE | 2019-04-28 08:00 | MRI_ITS ---
STUDY: MRA OF THE HEAD WITHOUT CONTRAST REASON FOR EXAM: Male, 78 years old. RIGHT SIDE BODY WEAKNESS TECHNIQUE: 3-D [id number] (TOF) imaging was performed with MIPs. The study was performed unenhanced. COMPARISON: None. FINDINGS: Patent right cavernous carotid artery. Patent left cavernous carotid artery. Patent right A1 segments of the anterior cerebral artery. Patent left A1 segments of the anterior cerebral artery. Unremarkable anterior communicating artery (ACOM) region. Normal bilateral A2 segments of the anterior cerebral arteries. Patent right M1 and M2 segments of the middle cerebral arteries, with a unremarkable M1 bifurcation. Patent left M1 and M2 segments of the middle cerebral arteries, with a unremarkable M1 bifurcation. There is non-visualization of the right posterior communicating artery (PCOM). There is non-visualization of the left posterior communicating artery (PCOM). Patent basilar artery with a normal basilar bifurcation. Patent bilateral posterior cerebral arteries. MRI/MRA Head ONLY without Contrast IMPRESSION: No large vessel occlusion Electronically Signed: Darrius Ortiz MD at 11:48 EST Tel , Service support ,
--- NOTE | 2019-04-28 08:32 | PN_ITS ---
Reason for Visit: The patient was admitted with right-sided weakness, progressive worsening, frequent falls and drooling. Vitals/I&O's: Vital Signs Temp Pulse Resp BP Pulse Ox 97.9 F 70 18 153/95 H 94 04/28/19 08:23 04/28/19 08:23 04/28/19 08:23 04/28/19 08:23 04/28/19 08:23 Oxygen Delivery Method Room Air Weight: 155 lb 3.287 oz Body Mass Index (BMI) 25.0 Finger Stick Blood Glucose 73 Intake and Output for Last 24 Hours 04/26/19 04/27/19 04/28/19 23:59 23:59 23:59 Intake Total 512.5 / 512.5 125 / 125 Output Total 300 / 300 Balance 512.5 / 512.5 -175 / -175 General: Confused, Disoriented, Lethargic HEENT: Atraumatic, PERRLA, EOMI, Normocephalic Oral: No Gingival or Mucosal Lesions/ Ulcerations, - - Drooling, Lungs: Diminished - Air entry diminished in bilateral lungs mainly in lower halves, Rales - Bilateral coarse rales present more on the right lower lung., Rhonchi Cardiovascular: Regular rate, Regular Rhythm, Normal S1, Normal S2, Murmur - Systolic murmur present over left lower sternal border Abdomen: Bowel Sounds Present, Soft, Non Tender, Non-Distended Extremities: Edema Skin: No rashes, No breakdown Musculoskeletal: Arthritic Changes, Muscle Wasting Lymphatic: No Cervical, Supraclavicular, or Inguinal Adenopathy Neurological: - - Patient has mild language deficit. Right-sided weakness. Left lower extremity hold for 5 seconds. Psych/Mental Status: Flat Affect Laboratory Results 04/27/19 06:35: Urine Color Yellow, Urine Clarity Clear, Urine pH 6.0, Ur Specific [place] 1.015, Urine Protein 15 H, Urine Glucose (UA) Normal, Urine Ketones Negative, Urine Occult Blood Negative, Urine Nitrite Negative, Urine Bilirubin Negative, Urine Urobilinogen Normal, Ur Leukocyte Esterase Negative, Urine RBC 0-5 SEEN, Urine WBC 0-5 SEEN, Ur Squamous Epith Cells 0 SEEN, Amorphous Sediment 1+, Urine Bacteria 0 SEEN, Urine Mucus 0 SEEN 04/27/19 19:00: WBC 6.1, RBC 4.71, Hgb 13.7, Hct 41.3, MCV 87.7, MCH 29.1, MCHC 33.2, RDW Std Deviation 44.0 H, RDW Coeff of [place] 13.8, Plt Count 181, MPV 10.2, Immature Gran % (Auto) 0.300, Neut % (Auto) 68.2, Lymph % (Auto) 15.0 L, Towns % (Auto) 13.0 H, Eos % (Auto) 2.8, Baso % (Auto) 0.7, Absolute Neuts (auto) 4.2, Absolute Lymphs (auto) 0.91, Nucleated RBC % 0 04/27/19 19:00: Sodium 139, Potassium 3.8, Chloride 104, Carbon Dioxide 28.0, Anion Gap 7, BUN 16, Creatinine 1.86 H, Estim Creat Clear Calc 29.06, Est GFR (MDRD) Af Amer 45 L, Est GFR (MDRD) Non-Af 37 L, BUN/Creatinine Ratio 8.6 L, Glucose 177 H, Calcium 9.4, Troponin I < 0.015 04/27/19 19:00: Lactic Acid 3.1 H* 04/27/19 19:00: Hemoglobin A1c 6.7 H 04/27/19 23:18: Lactic Acid 1.5 04/28/19 00:09: POC Glucose 88 04/28/19 05:43: Sodium 140, Potassium 3.4 L, Chloride 107, Carbon Dioxide 28.0, Anion Gap 5, BUN 13, Creatinine 1.30, Estim Creat Clear Calc 41.58, Est GFR (MDRD) Af Amer 68, Est GFR (MDRD) Non-Af 57 L, BUN/Creatinine Ratio 10.0, Glucose 68 L, Calcium 8.5 04/28/19 06:39: POC Glucose 63 L 04/28/19 07:24: POC Glucose 111 H Current Medications Acetaminophen (Tylenol) 650 mg PO Q6H PRN PRN PRN Reason: Pain Score 1-10/Temp > 100.7 F Aspirin (Aspirin, Baby) 81 mg PO QODAY@0800 [facility] Atorvastatin Calcium (Lipitor) 40 mg PO QHS [facility] Citalopram Hydrobromide (Celexa) 20 mg PO QHS [facility] Last Admin: 04/27/19 23:50 Dose: Not Given Documented by: Clopidogrel Bisulfate (Plavix) 75 mg PO DAILY [facility] Donepezil HCl (Aricept) 10 mg PO QHS [facility] Last Admin: 04/27/19 23:50 Dose: Not Given Documented by: Ferrous Sulfate (Ferrous Sulfate) 325 mg PO DAILY@0800 [facility] Last Admin: 04/28/19 07:59 Dose: Not Given Documented by: [facility] Last Admin: 04/28/19 07:59 Dose: Not Given Documented by: Glucagon () 1 mg IM .X1 PRN PRN Reason: Hypoglycemia Heparin Sodium (Porcine) (Heparin Na) 5,000 unit SC Q12 [facility] Last Admin: 04/28/19 00:21 Dose: Not Given Documented by: Hydralazine HCl (Apresoline Iv) 10 mg IV Q6H PRN PRN PRN Reason: for SBP >160 Sodium Chloride () 1,000 mls @ 100 mls/hr IV .Q10H [facility] Last Admin: 04/27/19 23:28 Dose: 100 mls/hr Documented by: Sodium Chloride () 250 mls @ 15 mls/hr IV .[id number] PRN PRN Reason: Saline Flush Sodium Chloride () 250 mls @ 15 mls/hr IV .[id number] PRN PRN Reason: Additional IVPB Infusion Dextrose (Dextrose 10%-Water) 250 mls @ 999 mls/hr IV .Q16M PRN; Protocol PRN Reason: HYPOGLYCEMIA Last Infusion: 04/28/19 06:58 Dose: Infused Documented by: Insulin Human Lispro (Humalog Kwikpen (Bkc)) 0 unit SC ACHS [facility]; Protocol Last Admin: 04/28/19 07:01 Dose: Not Given Documented by: Lamotrigine (Lamictal Chew) 25 mg PO DAILY [facility] Levetiracetam (Keppra Tablet) 750 mg PO BID [facility] Last Admin: 04/27/19 23:51 Dose: Not Given Documented by: Losartan Potassium (Cozaar) 100 mg PO DAILY [facility] Metoprolol Tartrate (Lopressor (Beta Kayden)) 25 mg PO BID [facility] Last Admin: 04/27/19 23:51 Dose: Not Given Documented by: Olanzapine (Zyprexa Zydis) 5 mg PO QHS [facility] Ondansetron HCl (Zofran) 4 mg IV Q8H PRN PRN PRN Reason: NAUSEA/VOMITING Pantoprazole Sodium (Protonix) 20 mg PO DAILY [facility] Sodium Chloride () 10 - 40 ml IV UD PRN PRN Reason: SALINE FLUSH Last Admin: 04/27/19 23:28 Dose: 10 ml Documented by: Tolterodine Tartrate (Detrol La) 2 mg PO DAILY [facility] Trazodone HCl (Desyrel) 25 mg PO QHS [facility] Last Admin: 04/27/19 23:50 Dose: Not Given Documented by: STROKE Vital Signs/Narrative: Vital Signs Temp Pulse Resp BP Pulse Ox 04/28/19 08:23 97.9 F 70 18 153/95 H 94 04/28/19 07:51 95 04/28/19 07:29 84 04/28/19 06:20 97.8 F 69 18 150/72 H 95 Medical Necessity - Tobacco Use Smoking Status: Former smoker Assessment/Plan This is a 78 years old male patient who was admitted through ER from Dr. Yoo's office for worsening right side body weakness, frequent falls, drooling, aspiration with concern of stroke, in context of recent diagnosis of cerebral aneurysm and he is being admitted for evaluation and need custodial facility. #1 Stroke with progressive worsening right side body weakness/drooling/frequent falls/choking with aspiration: Patient had a stroke about 10 years ago. site monitor shows normal sinus rhythm. Speech therapy evaluation by speech. MRI and MRA of head and neck. Patient is n.p.o. Current IV fluid. Hypokalemia, potassium being replaced. Hypomagnesemia, magnesium being replaced. #2 lactic acidosis: Mostly secondary to dehydration. Corrected repeat lactic acid 1.5. Chest x-ray showed no acute pneumonia. Patient has been afebrile, no leukocytosis. No obvious signs and symptoms of sepsis. Patient has been having intermittent diarrhea for which he was on Flagyl #3 recent diagnosis of cerebral aneurysm: He was seen by neurosurgery as outpatient, recommended follow-up in 2 years according to the patient's daughter. Clinically there is no evidence of cerebral aneurysm rupture. #4 right lung nodule history of prostate cancer status post prostatectomy: With suspicion of malignancy. Patient was seen by Dr. Yoo, recommended PET scan as outpatient which will be done on May 14, 2019. Follow-up with Dr. YOO #5 stage III chronic kidney disease: Baseline creatinine has been around 1.5 to 1.7 mg/dL. Creatinine has improved to 1.3. Baseline estimated GFR 41.5 with risk for getting into [facility] with MRI contrast, gadolinium therefore discussed with the radiology MRI and patient will have MRI without contrast. #6 CAD status post stents: Stable, continue aspirin, statins, Plavix, losartan and metoprolol. #7 type 2 diabetes mellitus: ADA diet, Accu-Cheks, insulin to scale A1c 6.7. Glucose is 111. Glucose 68. Glimepiride on hold and will resume later on with lower dose #8 seizure disorder: Stable, continue Keppra and lamotrigine. #9 history of stroke: Plan as above, continue aspirin, Plavix and statins. #10 depression: Stable, continue Celexa and trazodone. #11 history of prostate cancer: Status post prostatectomy, in remission, stable. #12 CODE STATUS: DNR CCA. Discussed with the patient himself as well as his daughter and by hospitalist colleague. #13 DVT prophylaxis: Subcu heparin. Total time of the visit including total time spent in counseling or coordination of care with ancillary AND nursing staff, (more than 50% of the total time, spent in obtaining medical information from nurses and other ancillary care providers),review of labs and imaging is 30 minutes Clinical Impression(s) from Imaging Studies Brain CT 04/27/19 18:27 IMPRESSION: Atrophy and advanced periventricular white matter ischemic changes. No evidence for acute bleed. If concern for acute infarct MRI recommended Chest X-Ray 04/27/19 18:40 IMPRESSION: There is discoid atelectasis in the right lower lobe. Laboratory Results 04/27/19 06:35: Urine Color Yellow, Urine Clarity Clear, Urine pH 6.0, Ur Specific [place] 1.015, Urine Protein 15 H, Urine Glucose (UA) Normal, Urine Ketones Negative, Urine Occult Blood Negative, Urine Nitrite Negative, Urine Bilirubin Negative, Urine Urobilinogen Normal, Ur Leukocyte Esterase Negative, Urine RBC 0-5 SEEN, Urine WBC 0-5 SEEN, Ur Squamous Epith Cells 0 SEEN, Amorphous Sediment 1+, Urine Bacteria 0 SEEN, Urine Mucus 0 SEEN 04/27/19 19:00: WBC 6.1, RBC 4.71, Hgb 13.7, Hct 41.3, MCV 87.7, MCH 29.1, MCHC 33.2, RDW Std Deviation 44.0 H, RDW Coeff of [place] 13.8, Plt Count 181, MPV 10.2, Immature Gran % (Auto) 0.300, Neut % (Auto) 68.2, Lymph % (Auto) 15.0 L, Towns % (Auto) 13.0 H, Eos % (Auto) 2.8, Baso % (Auto) 0.7, Absolute Neuts (auto) 4.2, Absolute Lymphs (auto) 0.91, Nucleated RBC % 0 04/27/19 19:00: Sodium 139, Potassium 3.8, Chloride 104, Carbon Dioxide 28.0, Anion Gap 7, BUN 16, Creatinine 1.86 H, Estim Creat Clear Calc 29.06, Est GFR (MDRD) Af Amer 45 L, Est GFR (MDRD) Non-Af 37 L, BUN/Creatinine Ratio 8.6 L, Glucose 177 H, Calcium 9.4, Troponin I < 0.015 04/27/19 19:00: Lactic Acid 3.1 H* 04/27/19 19:00: Hemoglobin A1c 6.7 H 04/27/19 23:18: Lactic Acid 1.5 04/28/19 00:09: POC Glucose 88 04/28/19 05:43: Sodium 140, Potassium 3.4 L, Chloride 107, Carbon Dioxide 28.0, Anion Gap 5, BUN 13, Creatinine 1.30, Estim Creat Clear Calc 41.58, Est GFR (MDRD) Af Amer 68, Est GFR (MDRD) Non-Af 57 L, BUN/Creatinine Ratio 10.0, Glucose 68 L, Calcium 8.5 04/28/19 05:43: Phosphorus 3.0, Magnesium 1.2 L 04/28/19 06:39: POC Glucose 63 L 04/28/19 07:24: POC Glucose 111 H Code Visit Inpatient E&M: 90714 Subs Hosp L3
[2019-04-28 08:51] LABS: Magnesium 1.2 mg/dL (1.6-2.6)
--- NOTE | 2019-04-28 09:45 | NURSING ---
Pt transported to MRI.
--- NOTE | 2019-04-28 10:20 | ECHOD_ITS ---
Reason For Study: CVA Procedure This was a 2D Doppler, Color Flow transthoracic echocardiogram. The study was technically difficult. Exam performed portable in patient room. Left Ventricle Normal LV size. Left ventricular systolic function is normal. The estimated ejection fraction is 65 %. Diastolic function is indeterminate. No regional wall motion abnormalities noted. Right Ventricle Normal RV size. Normal systolic function. Atria Normal left atrium. Normal right atrium. No doppler evidence for ASD. Bubble contrast study negative for right to left interatrial shunt. Mitral Valve There is moderate mitral annular calcification. Extension of the mitral annular calcification onto the base of the posterior mitral valve leaflet. Mild (1+) mitral valve insufficiency. Tricuspid Valve Normal tricuspid valve. Trivial tricuspid valve insufficiency. Right ventricular systolic pressure estimated to be 24 mmHg. Aortic Valve Trisinus/trileaflet aortic valve. Moderate diffuse aortic valve thickening. Moderate focal aortic valve calcification. Mild to moderate aortic stenosis. Pulmonic Valve The pulmonic valve is not well visualized. Great Vessels Normal sized aortic root. Pericardium/Pleural No pericardial effusion. Medication Performed a rapid injection of agitated mix of 9 cc saline and 1cc air to assess for atrial septal defect. MMode/2D Measurements & Calculations LVIDd: 3.7 cm IVSd: 1.3 cm LVOT diam: 2.0 cm LVIDs: 2.7 cm LVPWd: 1.2 cm RVDd: 3.3 cm FS: 26.7 % LVOT area: 3.1 cm2 Ao root diam: 3.2 cm LAV(MOD-bp): 39.8 ml LVAd ap4: 19.6 cm2 LAV(MOD-bp) Indexed: 22.2 ml/m2 EDV(MOD-sp4): 48.8 ml LAV(MOD-sp2): 37.1 ml EDV(sp4-el): 49.0 ml LAV(MOD-sp4): 35.1 ml LVAs ap4: 10.9 cm2 ESV(MOD-sp4): 18.1 ml ESV(sp4-el): 18.0 ml EF(MOD-sp4): 62.8 % EF(sp4-el): 63.4 % SV(MOD-sp4): 30.7 ml SV(sp4-el): 31.1 ml LA A4 area: 15.9 cm2 LA dimension(2D): 4.2 cm RA A4 area: 10.8 cm2 Doppler Measurements & Calculations MV E max esteban: 100.8 cm/sec Lat Peak E' Esteban: 4.8 cm/sec Med Peak E' Esteban: 4.5 cm/sec MV A max esteban: 124.0 cm/sec E/E' lat: 21.1 E/E' med: 22.6 MV E/A: 0.81 Ao V2 max: 278.8 cm/sec LV V1 max: 125.6 cm/sec SV(LVOT): 72.3 ml Ao max P.1 mmHg LV V1 max P.3 mmHg Ao V2 mean: 201.3 cm/sec LV V1 mean P.3 mmHg Ao mean P.9 mmHg LV V1 mean: 86.6 cm/sec Ao V2 VTI: 59.7 cm LV V1 VTI: 23.5 cm SARAH(I,D): 1.2 cm2 SARAH(V,D): 1.4 cm2 PA V2 max: 82.0 cm/sec TR max esteban: 231.5 cm/sec TR max P.4 mmHg Interpretation Summary The study was technically difficult. Left ventricular systolic function is normal. The estimated ejection fraction is 65 %. There is moderate mitral annular calcification. Extension of the mitral annular calcification onto the base of the posterior mitral valve leaflet. Mild (1+) mitral valve insufficiency. Trivial tricuspid valve insufficiency. Mild to moderate aortic stenosis. Right ventricular systolic pressure estimated to be 24 mmHg. Diastolic function is indeterminate. Bubble contrast study negative for right to left interatrial shunt. Ordering Physician: Francesco Paris Referring Physician: Praveen Mcgowan Performed By: Keira Walters RDCS, RVT
[2019-04-28] MEDS: Potassium Chloride 10mEq/100mL 10 MEQ/100 ML IV.SOLN. 100 MEQ IV BOLUS (11:15)
[2019-04-28] MEDS: 0.9% Normal Saline 1,000 ML 100 ML IV ×2 (11:16→23:48)
[2019-04-28] MEDS: Pantoprazole Sodium 20 MG Tablet PO (11:22)
[2019-04-28] MEDS: Metoprolol Tartrate 25 MG Tablet PO ×2 (11:22→21:32)
[2019-04-28] MEDS: levETIRAcetam 750 MG Tablet PO ×2 (11:22→21:32)
[2019-04-28] MEDS: lamoTRIgine 25 MG Tablet PO (11:22)
[2019-04-28] MEDS: Tolterodine Tartrate 2 MG CAP.SA PO (11:22)
[2019-04-28] MEDS: Losartan Potassium 100 MG Tablet PO (11:22)
[2019-04-28] MEDS: Clopidogrel Bisulfate 75 MG Tablet PO (11:22)
[2019-04-28 11:30] LABS: Bedside Glucose 97 mg/dL (70-110)
[2019-04-28] MEDS: Potassium Chloride 10mEq/100mL 10 MEQ/100 ML IV.SOLN. 50 MEQ IV BOLUS (13:50)
[2019-04-28 16:30] LABS: AST(SGOT) 12 U/L (15-37); Alanine Aminotransfer ALT/SGPT 14 U/L (16-61); Albumin, Serum 3.1 g/dL (3.2-5.0); Alkaline Phosphatase 39 U/L (45-117); Globulin 2.8 g/dL (2.2-4.2); Protein, Total 5.9 g/dL (6.4-8.2)
[2019-04-28 16:50] LABS: Bedside Glucose 100 mg/dL (70-110)
[2019-04-28] MEDS: OLANZapine 5 MG/TAB TAB.RAPDIS PO (21:31)
[2019-04-28] MEDS: Atorvastatin Calcium 40 MG Tablet PO (21:32)
[2019-04-28] MEDS: Donepezil HCl 10 MG Tablet PO (21:32)
[2019-04-28] MEDS: traZODone 50 MG Tablet 25 MG PO (21:32)
[2019-04-28] MEDS: Citalopram 20 MG Tablet PO (21:32)
[2019-04-28] MEDS: Heparin Injection (Vial) 5,000 UNIT/ML VIAL 5000 UNIT SC (21:32)
[2019-04-28 22:41] LABS: Bedside Glucose 92 mg/dL (70-110)
[2019-04-29] VITALS (11 sets, daily range): BP systolic 126–164; BP diastolic 65–95; PULSE 70–86; RESP 16–20; TEMP 36.5–37.4; O2SAT 92–96
[2019-04-29 06:02] LABS: Absolute Lymphocyte Count 0.93 X10^3/uL (0.83-4.51); Absolute Neutrophil Count 4.3 X10^3/uL (2.0-7.7); Basophil# 0.03 X10^3/uL; Basophil% 0.5 % (0-1); Eosinophil# 0.19 X10^3/uL; Eosinophils% 3.2 % (0-5); Hematocrit 38.6 % (40-54); Hemoglobin 12.9 g/dL (13.0-16.5); Lymphocyte # 0.93 X10^3/ul (4.0); Lymphocyte % 15.5 % (19-41); Mean Corp Hgb Conc 33.4 g/dL (32-36); Mean Corpuscular Hgb 29.1 pg (27.0-32.0); Mean Corpuscular Volume 86.9 fL (80-94); Mean Platelet Vol. 10.2 fl (6.2-12.0); NRBC Flagged by Analyzer 0 % (0-5); Neutrophil # 4.25 X10^3/uL (2.7-7.7); Neutrophil % 70.6 % (47-70); Platelet Count 180 K/mm3 (150-450); RBC Distribution Width CV 13.5 % (11.6-14.6); RBC Distribution Width SD 42.6 fl (35.1-43.9); Red Blood Count 4.44 M/mm3 (4.6-6.2)
[2019-04-29 06:29] LABS: Anion Gap 5 (5-15); BUN 12 mg/dL (7-18); BUN/Creat Ratio 9.4 RATIO (10-20); Calcium,Total 8.8 mg/dL (8.5-10.1); Chloride 103 mmol/L (98-107); Creatinine, Serum 1.28 mg/dL (0.70-1.30); EST Glomerular Filtration Rate 58 mL/min (>60); Est Glom Filt Rate - Afr Amer 70 mL/min (>60); Estimated Creatinine Clearance 42.23 ml/min; Glucose 85 mg/dL (74-106); Magnesium 1.5 mg/dL (1.6-2.6); Potassium 4.1 mmol/L (3.5-5.1); Sodium Level 137 mmol/L (136-145)
[2019-04-29 06:56] LABS: Bedside Glucose 83 mg/dL (70-110)
[2019-04-29] MEDS: Ferrous Sulfate 325 MG Tablet PO (08:08)
[2019-04-29] MEDS: Aspirin 81 MG TAB.CHEW PO (08:08)
[2019-04-29] MEDS: Tolterodine Tartrate 2 MG CAP.SA PO (08:09)
[2019-04-29] MEDS: Heparin Injection (Vial) 5,000 UNIT/ML VIAL 5000 UNIT SC ×2 (08:09→22:03)
[2019-04-29] MEDS: Losartan Potassium 100 MG Tablet PO (08:09)
[2019-04-29] MEDS: levETIRAcetam 750 MG Tablet PO ×2 (08:10→22:03)
[2019-04-29] MEDS: lamoTRIgine 25 MG Tablet PO (08:10)
[2019-04-29] MEDS: Metoprolol Tartrate 25 MG Tablet PO ×2 (08:10→22:03)
[2019-04-29] MEDS: Clopidogrel Bisulfate 75 MG Tablet PO (08:11)
[2019-04-29] MEDS: Pantoprazole Sodium 20 MG Tablet PO (08:11)
[2019-04-29] MEDS: 0.9% Normal Saline 1,000 ML 100 ML IV ×2 (08:12→16:18)
[2019-04-29] MEDS: Acetaminophen 325 MG Tablet 650 MG PO (11:21)
--- NOTE | 2019-04-29 11:31 | PN_ITS ---
<Melany Mann - Last Filed: 04/29/19 12:00> Subjective: Patient seen and examined. Family at bedside. Patient states he feels as good as expected. He denies current specific complaints. Daughter and patient's at bedside report patient has been quickly declining recently. They would like patient to go to SNF where his is currently in assisted living and also discussed palliative versus hospice transition. Referral made. - Physical Exam Vitals/I&O's: Vital Signs Temp Pulse Resp BP Pulse Ox 98.8 F 77 16 154/82 H 93 04/29/19 09:00 04/29/19 09:00 04/29/19 09:00 04/29/19 09:00 04/29/19 09:00 Oxygen Delivery Method Room Air Weight: 155 lb 3.287 oz Body Mass Index (BMI) 25.0 Finger Stick Blood Glucose 73 Intake and Output for Last 24 Hours 04/27/19 04/28/19 04/29/19 23:59 23:59 23:59 Intake Total 512.5 / 512.5 3284.00 / 3284.00 890 / 890 Output Total 650 / 650 Balance 512.5 / 512.5 2634.00 / 2634.00 890 / 890 General: Alert, Oriented x3, Cooperative HEENT: Atraumatic, PERRLA, EOMI, Normocephalic, - - Left periorbital ecchymosis Oral: Dry Mucosa Neck: Supple, No JVD, Negative Carotid Bruits Lungs: Clear to auscultation, Diminished Cardiovascular: Regular rate, Regular Rhythm, Normal S1, Normal S2 Abdomen: Bowel Sounds Present, Soft, Non Tender, Non-Distended Extremities: No clubbing, No cyanosis, No edema, Capillary Refill Less than 3 Seconds Skin: No rashes, No breakdown Musculoskeletal: No Tenderness to Palpation of Joints or Extremities, Cachexia, Muscle Wasting Neurological: Cranial nerves II-XII grossly intact, - - Right-sided weakness at baseline from prior CVA Psych/Mental Status: Flat Affect Laboratory Results 04/28/19 05:43: Total Bilirubin 0.60, Direct Bilirubin 0.20, AST 12 L, ALT 14 L, Alkaline Phosphatase 39 L, Total Protein 5.9 L, Albumin 3.1 L, Globulin 2.8 04/28/19 11:29: POC Glucose 97 04/28/19 16:32: POC Glucose 100 04/28/19 21:40: POC Glucose 92 04/29/19 05:34: WBC 6.0, RBC 4.44 L, Hgb 12.9 L, Hct 38.6 L, MCV 86.9, MCH 29.1, MCHC 33.4, RDW Std Deviation 42.6, RDW Coeff of [place] 13.5, Plt Count 180, MPV 10.2, Immature Gran % (Auto) 0.200, Neut % (Auto) 70.6 H, Lymph % (Auto) 15.5 L, Garza % (Auto) 10.0, Eos % (Auto) 3.2, Baso % (Auto) 0.5, Absolute Neuts (auto) 4.3, Absolute Lymphs (auto) 0.93, Nucleated RBC % 0 04/29/19 05:34: Sodium 137, Potassium 4.1, Chloride 103, Carbon Dioxide 29.0, Anion Gap 5, BUN 12, Creatinine 1.28, Estim Creat Clear Calc 42.23, Est GFR (MDRD) Af Amer 70, Est GFR (MDRD) Non-Af 58 L, BUN/Creatinine Ratio 9.4 L, Glucose 85, Calcium 8.8, Magnesium 1.5 L 04/29/19 06:47: POC Glucose 83 Current Medications Acetaminophen (Tylenol) 650 mg PO Q6H PRN PRN PRN Reason: Pain Score 1-10/Temp > 100.7 F Last Admin: 04/29/19 11:21 Dose: 650 mg Documented by: Aspirin (Aspirin, Baby) 81 mg PO QODAY@0800 [facility] Last Admin: 04/29/19 08:08 Dose: 81 mg Documented by: Atorvastatin Calcium (Lipitor) 40 mg PO QHS [facility] Last Admin: 04/28/19 21:32 Dose: 40 mg Documented by: Citalopram Hydrobromide (Celexa) 20 mg PO QHS [facility] Last Admin: 04/28/19 21:32 Dose: 20 mg Documented by: Clopidogrel Bisulfate (Plavix) 75 mg PO DAILY [facility] Last Admin: 04/29/19 08:11 Dose: 75 mg Documented by: Donepezil HCl (Aricept) 10 mg PO QHS [facility] Last Admin: 04/28/19 21:32 Dose: 10 mg Documented by: Ferrous Sulfate (Ferrous Sulfate) 325 mg PO DAILY@0800 [facility] Last Admin: 04/29/19 08:08 Dose: 325 mg Documented by: Glucagon () 1 mg IM .X1 PRN PRN Reason: Hypoglycemia Heparin Sodium (Porcine) (Heparin Na) 5,000 unit SC Q12 [facility] Last Admin: 04/29/19 08:09 Dose: 5,000 unit Documented by: Hydralazine HCl (Apresoline Iv) 10 mg IV Q6H PRN PRN PRN Reason: for SBP >160 Sodium Chloride () 1,000 mls @ 100 mls/hr IV .Q10H [facility] Last Admin: 04/29/19 08:12 Dose: 100 mls/hr Documented by: Sodium Chloride () 250 mls @ 15 mls/hr IV .[id number] PRN PRN Reason: Saline Flush Sodium Chloride () 250 mls @ 15 mls/hr IV .[id number] PRN PRN Reason: Additional IVPB Infusion Dextrose (Dextrose 10%-Water) 250 mls @ 999 mls/hr IV .Q16M PRN; Protocol PRN Reason: HYPOGLYCEMIA Last Infusion: 04/28/19 06:58 Dose: Infused Documented by: Insulin Human Lispro (Humalog Kwikpen (Bkc)) 0 unit SC ACHS [facility]; Protocol Last Admin: 04/29/19 11:21 Dose: Not Given Documented by: Lamotrigine (Lamictal Chew) 25 mg PO DAILY [facility] Last Admin: 04/29/19 08:10 Dose: 25 mg Documented by: Levetiracetam (Keppra Tablet) 750 mg PO BID [facility] Last Admin: 04/29/19 08:10 Dose: 750 mg Documented by: Losartan Potassium (Cozaar) 100 mg PO DAILY [facility] Last Admin: 04/29/19 08:09 Dose: 100 mg Documented by: Metoprolol Tartrate (Lopressor (Beta Kaydne)) 25 mg PO BID [facility] Last Admin: 04/29/19 08:10 Dose: 25 mg Documented by: Olanzapine (Zyprexa Zydis) 5 mg PO QHS [facility] Last Admin: 04/28/19 21:31 Dose: 5 mg Documented by: Ondansetron HCl (Zofran) 4 mg IV Q8H PRN PRN PRN Reason: NAUSEA/VOMITING Pantoprazole Sodium (Protonix) 20 mg PO DAILY [facility] Last Admin: 04/29/19 08:11 Dose: 20 mg Documented by: Sodium Chloride () 10 - 40 ml IV UD PRN PRN Reason: SALINE FLUSH Last Admin: 04/27/19 23:28 Dose: 10 ml Documented by: Tolterodine Tartrate (Detrol La) 2 mg PO DAILY [facility] Last Admin: 04/29/19 08:09 Dose: 2 mg Documented by: Trazodone HCl (Desyrel) 25 mg PO QHS [facility] Last Admin: 04/28/19 21:32 Dose: 25 mg Documented by: Medical Necessity - Tobacco Use Smoking Status: Former smoker Assessment/Plan 1. Worsening right-sided weakness, functional decline with prior CVA-MRI of brain, MRA of head and neck without acute stroke. Echocardiogram with EF 65%. PT/OT/ST. family requesting SNF at discharge. Also requesting palliative/hospice consult which was initiated. Continue aspirin, statin, Plavix. Chest x-ray and urinalysis unremarkable, no other evidence of etiology which can be contributing to increased weakness. 2. Recent diagnosis of cerebral aneurysm-following with neurosurgery as outpatient. 3. Right lung nodule-following with Dr. Cho. Upcoming PET scan, continue outpatient follow-up and testing as scheduled. 4. Chronic kidney disease-stable, trend BMP. 5. CAD with history of stents-continue aspirin, statin, Plavix, losartan, beta- kayden. 6. Type 2 diabetes mellitus-continue Accu-Cheks with sliding scale insulin. 7. Seizure disorder-continue Keppra, lamotrigine. 8. Depression-continue Celexa, trazodone regimen. 9. History of prostate cancer-status post prostatectomy. DVT prophylaxis- heparin sc Discharge planning-SNF pending acceptance, palliative/hospice consult. This patient was seen by CHARLES Andrews under the supervision of Dr. Paris. <Francesco Paris - Last Filed: 04/29/19 13:35> Subjective: Seen and examined. Patient family discussion was done. Overall patient is strengthening right lower leg is improved since admission. Has dysphagia oropharyngeal and aspiration. Modified diet. Palliative care option was discussed with the patient's daughter. - Physical Exam Vitals/I&O's: Vital Signs Temp Pulse Resp BP Pulse Ox 98.8 F 77 16 154/82 H 93 02/02/20 09:00 04/29/19 09:00 04/29/19 09:00 04/29/19 09:00 04/29/19 09:00 Oxygen Delivery Method Room Air Weight: 155 lb 3.287 oz Body Mass Index (BMI) 25.0 Finger Stick Blood Glucose 73 Intake and Output for Last 24 Hours 04/27/19 04/28/19 04/29/19 23:59 23:59 23:59 Intake Total 512.5 / 512.5 3284.00 / 3284.00 1558.33 / 1558.33 Output Total 650 / 650 Balance 512.5 / 512.5 2634.00 / 2634.00 1558.33 / 1558.33 General: Alert, Oriented x3, Cooperative HEENT: - Oral: No Gingival or Mucosal Lesions/ Ulcerations, Dry Mucosa Neck: Supple, No JVD, Negative Carotid Bruits Lungs: Clear to auscultation, Normal air movement, Diminished - Air entry diminished bilaterally Cardiovascular: Regular rate, Regular Rhythm, Normal S1, Normal S2, No murmurs Abdomen: Bowel Sounds Present, Soft, Non Tender, Non-Distended Extremities: No edema, Capillary Refill Less than 3 Seconds Skin: No rashes, No breakdown Musculoskeletal: No Tenderness to Palpation of Joints or Extremities, Arthritic Changes, Cachexia, Muscle Wasting Neurological: Cranial nerves II-XII grossly intact, Deep Tendon Reflexes 2+/4 and Symmetrical, Slurred Speech, Tongue Deviation, - - Right-sided weakness at baseline from prior CVA Dysphagia and dysarthria and language deficit Psych/Mental Status: Flat Affect Laboratory Results 04/28/19 05:43: Total Bilirubin 0.60, Direct Bilirubin 0.20, AST 12 L, ALT 14 L, Alkaline Phosphatase 39 L, Total Protein 5.9 L, Albumin 3.1 L, Globulin 2.8 04/28/19 16:32: POC Glucose 100 04/28/19 21:40: POC Glucose 92 04/29/19 05:34: WBC 6.0, RBC 4.44 L, Hgb 12.9 L, Hct 38.6 L, MCV 86.9, MCH 29.1, MCHC 33.4, RDW Std Deviation 42.6, RDW Coeff of [place] 13.5, Plt Count 180, MPV 10.2, Immature Gran % (Auto) 0.200, Neut % (Auto) 70.6 H, Lymph % (Auto) 15.5 L, Garza % (Auto) 10.0, Eos % (Auto) 3.2, Baso % (Auto) 0.5, Absolute Neuts (auto) 4.3, Absolute Lymphs (auto) 0.93, Nucleated RBC % 0 04/29/19 05:34: Sodium 137, Potassium 4.1, Chloride 103, Carbon Dioxide 29.0, Anion Gap 5, BUN 12, Creatinine 1.28, Estim Creat Clear Calc 42.23, Est GFR (MDRD) Af Amer 70, Est GFR (MDRD) Non-Af 58 L, BUN/Creatinine Ratio 9.4 L, Glucose 85, Calcium 8.8, Magnesium 1.5 L 04/29/19 06:47: POC Glucose 83 04/29/19 11:20: POC Glucose 123 H Current Medications Acetaminophen (Tylenol) 650 mg PO Q6H PRN PRN PRN Reason: Pain Score 1-10/Temp > 100.7 F Last Admin: 04/29/19 11:21 Dose: 650 mg Documented by: Aspirin (Aspirin, Baby) 81 mg PO QODAY@0800 [facility] Last Admin: 04/29/19 08:08 Dose: 81 mg Documented by: Atorvastatin Calcium (Lipitor) 40 mg PO QHS [facility] Last Admin: 04/28/19 21:32 Dose: 40 mg Documented by: Citalopram Hydrobromide (Celexa) 20 mg PO QHS [facility] Last Admin: 04/28/19 21:32 Dose: 20 mg Documented by: Clopidogrel Bisulfate (Plavix) 75 mg PO DAILY [facility] Last Admin: 04/29/19 08:11 Dose: 75 mg Documented by: Donepezil HCl (Aricept) 10 mg PO QHS [facility] Last Admin: 04/28/19 21:32 Dose: 10 mg Documented by: Ferrous Sulfate (Ferrous Sulfate) 325 mg PO DAILY@0800 [facility] Last Admin: 04/29/19 08:08 Dose: 325 mg Documented by: Glucagon () 1 mg IM .X1 PRN PRN Reason: Hypoglycemia Heparin Sodium (Porcine) (Heparin Na) 5,000 unit SC Q12 [facility] Last Admin: 04/29/19 08:09 Dose: 5,000 unit Documented by: Hydralazine HCl (Apresoline Iv) 10 mg IV Q6H PRN PRN PRN Reason: for SBP >160 Sodium Chloride () 1,000 mls @ 100 mls/hr IV .Q10H [facility] Last Infusion: 04/29/19 11:53 Dose: 100 mls/hr Documented by: Sodium Chloride () 250 mls @ 15 mls/hr IV .[id number] PRN PRN Reason: Saline Flush Sodium Chloride () 250 mls @ 15 mls/hr IV .[id number] PRN PRN Reason: Additional IVPB Infusion Dextrose (Dextrose 10%-Water) 250 mls @ 999 mls/hr IV .Q16M PRN; Protocol PRN Reason: HYPOGLYCEMIA Last Infusion: 04/28/19 06:58 Dose: Infused Documented by: Insulin Human Lispro (Humalog Kwikpen (Bkc)) 0 unit SC ACHS [facility]; Protocol Last Admin: 04/29/19 11:21 Dose: Not Given Documented by: Lamotrigine (Lamictal Chew) 25 mg PO DAILY [facility] Last Admin: 04/29/19 08:10 Dose: 25 mg Documented by: Levetiracetam (Keppra Tablet) 750 mg PO BID [facility] Last Admin: 04/29/19 08:10 Dose: 750 mg Documented by: Losartan Potassium (Cozaar) 100 mg PO DAILY [facility] Last Admin: 04/29/19 08:09 Dose: 100 mg Documented by: Metoprolol Tartrate (Lopressor (Beta Kayden)) 25 mg PO BID [facility] Last Admin: 04/29/19 08:10 Dose: 25 mg Documented by: Olanzapine (Zyprexa Zydis) 5 mg PO QHS [facility] Last Admin: 04/28/19 21:31 Dose: 5 mg Documented by: Ondansetron HCl (Zofran) 4 mg IV Q8H PRN PRN PRN Reason: NAUSEA/VOMITING Pantoprazole Sodium (Protonix) 20 mg PO DAILY [facility] Last Admin: 04/29/19 08:11 Dose: 20 mg Documented by: Sodium Chloride () 10 - 40 ml IV UD PRN PRN Reason: SALINE FLUSH Last Admin: 04/27/19 23:28 Dose: 10 ml Documented by: Tolterodine Tartrate (Detrol La) 2 mg PO DAILY [facility] Last Admin: 04/29/19 08:09 Dose: 2 mg Documented by: Trazodone HCl (Desyrel) 25 mg PO QHS [facility] Last Admin: 04/28/19 21:32 Dose: 25 mg Documented by: Assessment/Plan This patient was seen in conjunction with Melany CARRASCO. I have independently interviewed and examined the patient and reviewed pertinent history, examination findings, laboratory and plan of management. I have reviewed the note and agree with the documented findings with the few additional points. In brief, patient is admitted to PCU for progressive worsening on right side along with drooling, frequent fall, aspiration and language deficit with concern for acute stroke which ruled out. MRI brain showed no acute stroke. MRA head and neck no major occlusion or aneurysm. On conservative aspirin, Plavix and statin. Chest x-ray shows discoid atelectasis right lower lobe. Discussed with the family regarding the imaging and blood test. Echo EF 65%. Bubble contrast study negative for PFO/ASD. Mild to moderate left ear, mild MR, trivial TR. Coronary artery disease history of stents: No chest pain. Recent diagnosis of cerebral aneurysm: Patient has outpatient follow-up with neurosurgeon. Cancer history: History of prostate cancer status post mastectomy and right lung nodule, patient is scheduled PET scan with oncologist Dr. Cho Other multiple comorbidities include type 2 diabetes mellitus, CKD stage III, epilepsy/seizure disorder, depression and decreasing functional capacity Patient is DNR CC arrest. Palliative care consult. Total time of the visit including total time spent in counseling or coordination of care, (more than 50% of the total time, spent in obtaining medical information from nurses and other ancillary care providers), discussion with patient's daughter and , review of labs and imaging is 30 minutes I have discussed my assessment with Melany CARRASCO and orders have been reviewed. Code Visit Inpatient E&M: 39155 Subs Hosp L2
[2019-04-29 11:36] LABS: Bedside Glucose 123 mg/dL (70-110)
[2019-04-29 16:46] LABS: Bedside Glucose 107 mg/dL (70-110)
[2019-04-29 20:46] LABS: Bedside Glucose 159 mg/dL (70-110)
--- NOTE | 2019-04-29 20:52 | NURSING ---
Attempted to call pts daughter at this time to give update on pt. No answer at this time, will attempt again at a later time.
[2019-04-29] MEDS: Donepezil HCl 10 MG Tablet PO (22:03)
[2019-04-29] MEDS: OLANZapine 5 MG/TAB TAB.RAPDIS PO (22:03)
[2019-04-29] MEDS: traZODone 50 MG Tablet 25 MG PO (22:03)
[2019-04-29] MEDS: Atorvastatin Calcium 40 MG Tablet PO (22:03)
[2019-04-29] MEDS: Citalopram 20 MG Tablet PO (22:03)
[2019-04-29 22:26] LABS: Bedside Glucose 126 mg/dL (70-110)
[2019-04-30] VITALS (8 sets, daily range): BP systolic 131–161; BP diastolic 72–84; PULSE 67–76; RESP 18; TEMP 37.2–37.6; O2SAT 91–93
[2019-04-30] MEDS: 0.9% Normal Saline 1,000 ML 100 ML IV (02:21)
[2019-04-30 06:05] LABS: Absolute Lymphocyte Count 1.41 X10^3/uL (0.83-4.51); Basophil# 0.01 X10^3/uL; Basophil% 0.2 % (0-1); Eosinophil# 0.24 X10^3/uL; Eosinophils% 4.6 % (0-5); Hematocrit 33.1 % (40-54); Hemoglobin 11.2 g/dL (13.0-16.5); Lymphocyte # 1.41 X10^3/ul (4.0); Lymphocyte % 26.8 % (19-41); Mean Corp Hgb Conc 33.8 g/dL (32-36); Mean Corpuscular Hgb 28.6 pg (27.0-32.0); Mean Corpuscular Volume 84.7 fL (80-94); Mean Platelet Vol. 9.8 fl (6.2-12.0); Monocyte# 0.62 X10^3/uL; Monocyte% 11.8 % (0-10); NRBC Flagged by Analyzer 0 % (0-5); Neutrophil # 2.97 X10^3/uL (2.7-7.7); Neutrophil % 56.4 % (47-70); Platelet Count 173 K/mm3 (150-450); RBC Distribution Width CV 13.3 % (11.6-14.6); RBC Distribution Width SD 41.3 fl (35.1-43.9); Red Blood Count 3.91 M/mm3 (4.6-6.2); White Blood Count 5.3 K/mm3 (4.4-11.0)
[2019-04-30 06:23] LABS: Anion Gap 7 (5-15); BUN 14 mg/dL (7-18); BUN/Creat Ratio 11.3 RATIO (10-20); Calcium,Total 8.8 mg/dL (8.5-10.1); Chloride 107 mmol/L (98-107); Creatinine, Serum 1.24 mg/dL (0.70-1.30); EST Glomerular Filtration Rate 60 mL/min (>60); Est Glom Filt Rate - Afr Amer 72 mL/min (>60); Estimated Creatinine Clearance 43.59 ml/min; Glucose 88 mg/dL (74-106); Potassium 3.6 mmol/L (3.5-5.1); Sodium Level 138 mmol/L (136-145)
[2019-04-30 06:35] LABS: Bedside Glucose 93 mg/dL (70-110)
[2019-04-30] MEDS: Clopidogrel Bisulfate 75 MG Tablet PO (09:43)
[2019-04-30] MEDS: Ferrous Sulfate 325 MG Tablet PO (09:43)
[2019-04-30] MEDS: Tolterodine Tartrate 2 MG CAP.SA PO (09:43)
[2019-04-30] MEDS: Pantoprazole Sodium 20 MG Tablet PO (09:43)
[2019-04-30] MEDS: levETIRAcetam 750 MG Tablet PO (09:43)
[2019-04-30] MEDS: Losartan Potassium 100 MG Tablet PO (09:43)
[2019-04-30] MEDS: Heparin Injection (Vial) 5,000 UNIT/ML VIAL 5000 UNIT SC (09:43)
--- NOTE | 2019-04-30 09:44 | CASEMGMT ---
Patient is from [facility]. Per MD note [facility]iative/H[facility]. HEAVEN called [facility] and left a voice mail for Hilda requesting a return call. HEAVEN also faxed information to [facility]. HEAVEN also called Hospice and they will be meeting with patient and his family tomorrow. Paula FOLEY
[2019-04-30] MEDS: Metoprolol Tartrate 25 MG Tablet PO (09:45)
[2019-04-30] MEDS: lamoTRIgine 25 MG Tablet PO (09:45)
--- NOTE | 2019-04-30 11:04 | TREXTCAR_ITS ---
- Diet 04/28/19 09:11 Diet: Cardiac: Calorie-Controlled Food consistency:: Mechanical Soft/Ground Liquid Consistency:: [place] Thick Is pt able to select menu?: No Diet Comments: supervised meals, meds crushed in purees How many daily calories?: 1800 calorie - Routine Orders/Code Status Code Status: [facility] - Suggestions for Active Care Change Position every (hours): 3 Hours to sit in a chair: 2 Times a day to sit in chair: 3 - Therapies Weight Bearing: Weight bearing as tolerated Physical Therapy: Eval and Treat Occupational Therapy: Eval and Treat Speech Therapy: Eval and Treat - Problem/Diagnosis (1) Seizure disorder Status: Chronic Current Visit: Yes (2) Pulmonary nodule, right Status: Chronic Current Visit: Yes (3) Brain aneurysm Status: Chronic Current Visit: Yes (4) Depression Status: Chronic Current Visit: Yes (5) Stage III chronic kidney disease Status: Chronic Current Visit: Yes (6) Hyperlipidemia Status: Chronic Current Visit: Yes (7) Type 2 diabetes mellitus Status: Chronic Current Visit: Yes (8) Dementia Status: Chronic Current Visit: Yes (9) Coronary artery disease Status: Chronic Comment: Status post stents. Current Visit: Yes - Allergies/Procedures Done in Hospital Allergies/Adverse Reactions: Allergies No Known Allergies Allergy (Verified 04/23/19 17:01) - Type of Care/Length of Stay Estimated LOS: Convalescent Care Less Than 30 days Type of Care Needed: Skilled Rehab Potential: Fair Prognosis: Fair - Additional Orders/Day of Discharge H&P will serve as current which was dated: 04/27/19 Day of Discharge: 04/30/19 - Follow Up Care Primary Care Physician: Praveen Mcgowan [Primary Care Provider] - Please follow up with your Primary Care Physician in: 1 week. Please Follow Up With: Praveen Mcgowan
--- NOTE | 2019-04-30 11:11 | PHA.DC.MR ---
Pharmacy Service has performed discharge medication reconciliation for this patient. Home Medications Aspirin [Aspirin, Baby] 81 mg PO QODAY 11/16/18 Clopidogrel Bisulfate [Plavix] 75 mg PO DAILY 11/16/18 Ferrous Sulfate 325 mg PO DAILY@0800 11/16/18 Levetiracetam [Keppra] 750 mg PO BID 11/16/18 Metformin HCl 1,000 mg PO BID 11/16/18 Omeprazole [Prilosec] 20 mg PO DAILY 11/16/18 Rosuvastatin Calcium 20 mg PO DAILY 11/16/18 Cholecalciferol (Vitamin D3) [Vitamin D3] 2,000 unit PO DAILY 04/23/19 Citalopram [Celexa] 20 mg PO QHS 04/23/19 Donepezil HCl [Aricept] 10 mg PO QHS 04/23/19 Lamotrigine 25 mg PO DAILY 04/23/19 Losartan Potassium [Cozaar] 100 mg PO DAILY 04/23/19 Olanzapine [Zyprexa] 5 mg PO QHS 04/23/19 traZODone [Desyrel] 25 mg PO QHS 04/23/19 Glimepiride [Amaryl] 4 mg PO DAILY 04/27/19 Metoprolol Tartrate 25 mg PO BID 04/27/19 Oxybutynin Chloride [Oxybutynin Chloride ER] 10 mg PO DAILY 04/27/19 The patient's discharge medication list was reviewed for discrepancies and discrepancies were resolved.
[2019-04-30 11:16] LABS: Bedside Glucose 132 mg/dL (70-110)
--- NOTE | 2019-04-30 11:27 | DS.PCM_ITS ---
<Melany Mann - Last Filed: 04/30/19 11:32> Discharge Date and Diagnosis Date of Admission: 04/27/19 Date of Discharge: 04/30/19 - Primary Discharge Diagnosis 1. Worsening right-sided weakness, functional decline with prior CVA 2. Recent diagnosis of cerebral aneurysm 3. Right lung nodule 4. Chronic kidney disease stage III 5. CAD with history of stents 6. Type 2 diabetes mellitus 7. Seizure disorder 8. Depression 9. History of prostate cancer - Secondary Discharge Diagnosis Chronic Problems History of prostate cancer (Chronic) Status post prostatectomy History of stroke (Chronic) Seizure disorder (Chronic) Pulmonary nodule, right (Chronic) Brain aneurysm (Chronic) Depression (Chronic) Stage III chronic kidney disease (Chronic) Hyperlipidemia (Chronic) Type 2 diabetes mellitus (Chronic) Dementia (Chronic) Coronary artery disease (Chronic) Status post stents. Hospital Course and Treatment Imaging Results: Diagnostic Data Brain CT 04/27/19 18:27 IMPRESSION: Atrophy and advanced periventricular white matter ischemic changes. No evidence for acute bleed. If concern for acute infarct MRI recommended Electronically Signed: Eric Pizarro MD at 19:42 EST , Service support , ADDENDUM: 04/28/19 0832 Chest X-Ray 04/27/19 18:40 IMPRESSION: There is discoid atelectasis in the right lower lobe. Electronically Signed: Eric Pizarro MD at 19:04 EST , Service support , Brain MRI 04/28/19 08:00 IMPRESSION: Diffuse senescent changes as above with no evidence of acute intracranial bleed, mass or ischemia. Electronically Signed: Justyn Espinosa DO at 11:46 EST , Service support , Head MRA 04/28/19 08:00 IMPRESSION: No large vessel occlusion Electronically Signed: Darrius Ortiz MD at 11:48 EST Tel , Service support , Neck MRA 04/28/19 08:00 IMPRESSION: Nonvisualization of the right vertebral artery, Occlusion versus atresia. Comparison with prior examinations if available or further evaluation with CTA is recommended. Electronically Signed: Darrius Ortiz MD at 11:51 EST Tel , Service support , Operations: None Procedures: 2-D Echocardiogram Summary of Care Provided: The patient is a 78 year old M admitted 04/27/2019 due to worsening right body weakness. 1. Worsening right-sided weakness, functional decline with prior CVA-MRI of brain, MRA of head and neck without acute stroke. Echocardiogram with EF 65%. Family requesting SNF at discharge. Also requesting palliative/hospice consult which was initiated, family to meet with palliative/hospice Tuesday evening. Continue aspirin, statin, Plavix. Chest x-ray and urinalysis unremarkable, no other evidence of etiology which can be contributing to increased weakness. Follow-up with primary care physician in 1 week. 2. Recent diagnosis of cerebral aneurysm-following with neurosurgery as outpatient. 3. Right lung nodule-following with Dr. Cho. Upcoming PET scan, continue outpatient follow-up and testing as scheduled. 4. Chronic kidney disease stage III-stable, trend BMP. 5. CAD with history of stents-continue aspirin, statin, Plavix, losartan, beta- kayden. 6. Type 2 diabetes mellitus-continue home oral regimen. 7. Seizure disorder-continue Keppra, lamotrigine. 8. Depression-continue Celexa, trazodone regimen. 9. History of prostate cancer-status post prostatectomy. General: Alert, Oriented x3, Cooperative HEENT: Atraumatic, PERRLA, EOMI, Normocephalic, - - Left periorbital ecchymosis Oral: Dry Mucosa Neck: Supple, No JVD, Negative Carotid Bruits Lungs: Clear to auscultation, Diminished Cardiovascular: Regular rate, Regular Rhythm, Normal S1, Normal S2 Abdomen: Bowel Sounds Present, Soft, Non Tender, Non-Distended Extremities: No clubbing, No cyanosis, No edema, Capillary Refill Less than 3 Seconds Skin: No rashes, No breakdown Musculoskeletal: No Tenderness to Palpation of Joints or Extremities, Cachexia, Muscle Wasting Neurological: Cranial nerves II-XII grossly intact, - - Right-sided weakness at baseline from prior CVA Psych/Mental Status: Flat Affect Patient seen and examined prior to discharge. Physical assessment as noted above. Patient is stable for discharge with follow up recommendations as noted above. This patient was seen by CHARLES Andrews under the supervision of Dr. Rose. - Physical Exam Vitals/I&O's: Vital Signs Temp Pulse Resp BP Pulse Ox 99.0 F 71 18 131/83 H 91 04/30/19 06:30 04/30/19 09:45 04/30/19 06:30 04/30/19 09:45 04/30/19 07:45 Oxygen Delivery Method Room Air Weight: 155 lb 3.287 oz Body Mass Index (BMI) 25.0 Finger Stick Blood Glucose 73 Intake and Output for Last 24 Hours 04/28/19 04/29/19 04/30/19 23:59 23:59 23:59 Intake Total 3284.00 / 3284.00 2400.00 / 2400.00 1050 / 1050 Output Total 650 / 650 Balance 2634.00 / 2634.00 2400.00 / 2400.00 1050 / 1050 Laboratory Results 04/29/19 11:20: POC Glucose 123 H 04/29/19 16:18: POC Glucose 107 04/29/19 20:24: POC Glucose 159 H 04/29/19 22:01: POC Glucose 126 H 04/30/19 05:40: WBC 5.3, RBC 3.91 L, Hgb 11.2 L, Hct 33.1 L, MCV 84.7, MCH 28.6, MCHC 33.8, RDW Std Deviation 41.3, RDW Coeff of [place] 13.3, Plt Count 173, MPV 9.8, Immature Gran % (Auto) 0.200, Neut % (Auto) 56.4, Lymph % (Auto) 26.8, [place] % (Auto) 11.8 H, Eos % (Auto) 4.6, Baso % (Auto) 0.2, Absolute Neuts (auto) 3.0, Absolute Lymphs (auto) 1.41, Nucleated RBC % 0 04/30/19 05:40: Sodium 138, Potassium 3.6, Chloride 107, Carbon Dioxide 24.0, Anion Gap 7, BUN 14, Creatinine 1.24, Estim Creat Clear Calc 43.59, Est GFR (MDRD) Af Amer 72, Est GFR (MDRD) Non-Af 60, BUN/Creatinine Ratio 11.3, Glucose 88, Calcium 8.8 04/30/19 06:26: POC Glucose 93 04/30/19 11:02: POC Glucose 132 H Current Medications Acetaminophen (Tylenol) 650 mg PO Q6H PRN PRN PRN Reason: Pain Score 1-10/Temp > 100.7 F Last Admin: 04/29/19 11:21 Dose: 650 mg Documented by: Aspirin (Aspirin, Baby) 81 mg PO QODAY@0800 [facility] Last Admin: 04/29/19 08:08 Dose: 81 mg Documented by: Atorvastatin Calcium (Lipitor) 40 mg PO QHS [facility] Last Admin: 04/29/19 22:03 Dose: 40 mg Documented by: Citalopram Hydrobromide (Celexa) 20 mg PO QHS [facility] Last Admin: 04/29/19 22:03 Dose: 20 mg Documented by: Clopidogrel Bisulfate (Plavix) 75 mg PO DAILY [facility] Last Admin: 04/30/19 09:43 Dose: 75 mg Documented by: Donepezil HCl (Aricept) 10 mg PO QHS [facility] Last Admin: 04/29/19 22:03 Dose: 10 mg Documented by: Ferrous Sulfate (Ferrous Sulfate) 325 mg PO DAILY@0800 [facility] Last Admin: 04/30/19 09:43 Dose: 325 mg Documented by: Glucagon () 1 mg IM .X1 PRN PRN Reason: Hypoglycemia Heparin Sodium (Porcine) (Heparin Na) 5,000 unit SC Q12 [facility] Last Admin: 04/30/19 09:43 Dose: 5,000 unit Documented by: Hydralazine HCl (Apresoline Iv) 10 mg IV Q6H PRN PRN PRN Reason: for SBP >160 Sodium Chloride () 1,000 mls @ 100 mls/hr IV .Q10H [facility] Last Admin: 04/30/19 02:21 Dose: 100 mls/hr Documented by: Sodium Chloride () 250 mls @ 15 mls/hr IV .[id number] PRN PRN Reason: Saline Flush Sodium Chloride () 250 mls @ 15 mls/hr IV .[id number] PRN PRN Reason: Additional IVPB Infusion Dextrose (Dextrose 10%-Water) 250 mls @ 999 mls/hr IV .Q16M PRN; Protocol PRN Reason: HYPOGLYCEMIA Last Infusion: 04/28/19 06:58 Dose: Infused Documented by: Insulin Human Lispro (Humalog Kwikpen (Bkc)) 0 unit SC ACHS [facility]; Protocol Last Admin: 04/30/19 11:12 Dose: Not Given Documented by: Lamotrigine (Lamictal Chew) 25 mg PO DAILY [facility] Last Admin: 04/30/19 09:45 Dose: 25 mg Documented by: Levetiracetam (Keppra Tablet) 750 mg PO BID [facility] Last Admin: 04/30/19 09:43 Dose: 750 mg Documented by: Losartan Potassium (Cozaar) 100 mg PO DAILY [facility] Last Admin: 04/30/19 09:43 Dose: 100 mg Documented by: Metoprolol Tartrate (Lopressor (Beta Kayden)) 25 mg PO BID [facility] Last Admin: 04/30/19 09:45 Dose: 25 mg Documented by: Olanzapine (Zyprexa Zydis) 5 mg PO QHS [facility] Last Admin: 04/29/19 22:03 Dose: 5 mg Documented by: Ondansetron HCl (Zofran) 4 mg IV Q8H PRN PRN PRN Reason: NAUSEA/VOMITING Pantoprazole Sodium (Protonix) 20 mg PO DAILY [facility] Last Admin: 04/30/19 09:43 Dose: 20 mg Documented by: Sodium Chloride () 10 - 40 ml IV UD PRN PRN Reason: SALINE FLUSH Last Admin: 04/27/19 23:28 Dose: 10 ml Documented by: Tolterodine Tartrate (Detrol La) 2 mg PO DAILY [facility] Last Admin: 04/30/19 09:43 Dose: 2 mg Documented by: Trazodone HCl (Desyrel) 25 mg PO QHS [facility] Last Admin: 04/29/19 22:03 Dose: 25 mg Documented by: Home Medications: Medications to take at Discharge Aspirin [Aspirin, Baby] 81 mg PO QODAY 11/16/18 Clopidogrel Bisulfate [Plavix] 75 mg PO DAILY 11/16/18 Ferrous Sulfate 325 mg PO DAILY@0800 11/16/18 Levetiracetam [Keppra] 750 mg PO BID 11/16/18 Metformin HCl 1,000 mg PO BID 11/16/18 Omeprazole [Prilosec] 20 mg PO DAILY 11/16/18 Rosuvastatin Calcium 20 mg PO DAILY 11/16/18 Cholecalciferol (Vitamin D3) [Vitamin D3] 2,000 unit PO DAILY 04/23/19 Citalopram [Celexa] 20 mg PO QHS 04/23/19 Donepezil HCl [Aricept] 10 mg PO QHS 04/23/19 Lamotrigine 25 mg PO DAILY 04/23/19 Losartan Potassium [Cozaar] 100 mg PO DAILY 04/23/19 Olanzapine [Zyprexa] 5 mg PO QHS 04/23/19 traZODone [Desyrel] 25 mg PO QHS 04/23/19 Glimepiride [Amaryl] 4 mg PO DAILY 04/27/19 Metoprolol Tartrate 25 mg PO BID 04/27/19 Oxybutynin Chloride [Oxybutynin Chloride ER] 10 mg PO DAILY 04/27/19 Primary Care Physician: Praveen Mcgowan [Primary Care Provider] - Please follow up with your Primary Care Physician in: 1 week. Disposition: Retirement facility Minutes spent on discharge:: 35 Patient Condition:: Stable Medical Necessity - Tobacco Use Smoking Status: Former smoker Meaningful Use Info Meaningful Use Diagnoses (Choose all that apply): None applicable <EdisonshirazmedinaRadhabridget E - Last Filed: 04/30/19 12:31> Discharge Date and Diagnosis - Secondary Discharge Diagnosis Chronic Problems History of prostate cancer (Chronic) Status post prostatectomy History of stroke (Chronic) Seizure disorder (Chronic) Pulmonary nodule, right (Chronic) Brain aneurysm (Chronic) Depression (Chronic) Stage III chronic kidney disease (Chronic) Hyperlipidemia (Chronic) Type 2 diabetes mellitus (Chronic) Dementia (Chronic) Coronary artery disease (Chronic) Status post stents. Hospital Course and Treatment Summary of Care Provided: Hospitalist note: Discharge summary above reviewed and I concur with discharge and treatment plan. Patient seen and examined on the day of discharge and appeared to be stable for discharge to long term facility. Patient presented to the medicine because of frequent falls, worsening right-sided weakness and drooling in context of history of stroke. Initially, there was a concern that he may have a new stroke. CT scan brain showed no acute infarct or hemorrhage. MRI brain performed and all showed no acute infarct or hemorrhage. MRA of the head revealed no significant large vessel occlusion. MRA of the neck revealed nonvisualization of the right vertebral artery which could be due to occlusion versus atresia. 2D echocardiogram revealed ejection fraction 65%, RVSP of 24 and there was no evidence of [id number]-nzmi shunt. Patient was found to have lactic acid of 3.1 which was attributed to dehydration and poor oral intake, lactic acid came back to normal with IV fluids. It was 3.1 on admission and cam e down to 1.5 after IV fluids. There was no evidence of infection, sepsis or severe sepsis. Acute stroke ruled out. Patient had a recent diagnosis of cerebral aneurysm as outpatient for which he saw neurosurgery at [facility] as outpatient and recommended follow-up in 2 years. During this time, imaging studies showed no evidence of worsening aneurysm or rupture aneurysm. Patient has been following up with Dr. Cho regarding right lung nodule with suspicion of malignancy and plan is to do PET scan as outpatient according to Dr. Cho. Patient was treated with IV fluids and acute stroke ruled out. I discussed the CODE STATUS with the patient himself and his family and they decided to go with DNR CCA. His vital signs were stable throughout admission. Patient discharged to long term facility in a stable condition, discharged on his same previous home medications without any changes, plan to follow-up with neurosurgery for the cerebral aneurysm as recommended, follow-up with Dr. Cho regarding the right lung nodule which he will have PET scan done this month, recommended follow-up with PCP in 1 week. - Physical Exam General: Alert, Oriented x3, Cooperative, No apparent distress. HEENT: Atraumatic, PERRLA, EOMI. Neck: Supple, No JVD, Negative Carotid Bruits, Trachea Midline, Thyroid Normal. Lungs: Diminished breath sounds bilateral, otherwise clear, No rhonchi, No wheeze, No rales. Cardiovascular: Regular rate, Regular Rhythm, Normal S1, Normal S2, PMI Normal. Abdomen: Bowel Sounds Present, Soft, Non Tender, Non-Distended, No Hepato- splenomegaly. Extremities: No clubbing, No cyanosis, No edema Skin: No rashes, No breakdown Neurological: Right-sided weakness at baseline from prior CVA. This note was generated with [employer] software. It may contain incorrect words, spelling, and punctuation that were not noted in checking the note before signing. - Physical Exam Vitals/I&O's: Vital Signs Temp Pulse Resp BP Pulse Ox 99 F 67 18 136/72 H 93 04/30/19 11:45 04/30/19 11:45 04/30/19 11:45 04/30/19 11:45 04/30/19 11:45 Oxygen Delivery Method Room Air Weight: 155 lb 3.287 oz Body Mass Index (BMI) 25.0 Finger Stick Blood Glucose 73 Intake and Output for Last 24 Hours 04/28/19 04/29/19 04/30/19 23:59 23:59 23:59 Intake Total 3284.00 / 3284.00 2400.00 / 2400.00 1080 / 1080 Output Total 650 / 650 Balance 2634.00 / 2634.00 2400.00 / 2400.00 1080 / 1080 Laboratory Results 04/29/19 16:18: POC Glucose 107 04/29/19 20:24: POC Glucose 159 H 04/29/19 22:01: POC Glucose 126 H 04/30/19 05:40: WBC 5.3, RBC 3.91 L, Hgb 11.2 L, Hct 33.1 L, MCV 84.7, MCH 28.6, MCHC 33.8, RDW Std Deviation 41.3, RDW Coeff of [place] 13.3, Plt Count 173, MPV 9.8, Immature Gran % (Auto) 0.200, Neut % (Auto) 56.4, Lymph % (Auto) 26.8, [place] % (Auto) 11.8 H, Eos % (Auto) 4.6, Baso % (Auto) 0.2, Absolute Neuts (auto) 3.0, Absolute Lymphs (auto) 1.41, Nucleated RBC % 0 04/30/19 05:40: Sodium 138, Potassium 3.6, Chloride 107, Carbon Dioxide 24.0, Anion Gap 7, BUN 14, Creatinine 1.24, Estim Creat Clear Calc 43.59, Est GFR (MDRD) Af Amer 72, Est GFR (MDRD) Non-Af 60, BUN/Creatinine Ratio 11.3, Glucose 88, Calcium 8.8 04/30/19 06:26: POC Glucose 93 04/30/19 11:02: POC Glucose 132 H Current Medications Acetaminophen (Tylenol) 650 mg PO Q6H PRN PRN PRN Reason: Pain Score 1-10/Temp > 100.7 F Last Admin: 04/29/19 11:21 Dose: 650 mg Documented by: Aspirin (Aspirin, Baby) 81 mg PO QODAY@0800 [facility] Last Admin: 04/29/19 08:08 Dose: 81 mg Documented by: Atorvastatin Calcium (Lipitor) 40 mg PO QHS [facility] Last Admin: 04/29/19 22:03 Dose: 40 mg Documented by: Citalopram Hydrobromide (Celexa) 20 mg PO QHS [facility] Last Admin: 04/29/19 22:03 Dose: 20 mg Documented by: Clopidogrel Bisulfate (Plavix) 75 mg PO DAILY [facility] Last Admin: 04/30/19 09:43 Dose: 75 mg Documented by: Donepezil HCl (Aricept) 10 mg PO QHS [facility] Last Admin: 04/29/19 22:03 Dose: 10 mg Documented by: Ferrous Sulfate (Ferrous Sulfate) 325 mg PO DAILY@0800 [facility] Last Admin: 04/30/19 09:43 Dose: 325 mg Documented by: Glucagon () 1 mg IM .X1 PRN PRN Reason: Hypoglycemia Heparin Sodium (Porcine) (Heparin Na) 5,000 unit SC Q12 [facility] Last Admin: 04/30/19 09:43 Dose: 5,000 unit Documented by: Hydralazine HCl (Apresoline Iv) 10 mg IV Q6H PRN PRN PRN Reason: for SBP >160 Sodium Chloride () 1,000 mls @ 100 mls/hr IV .Q10H [facility] Last Admin: 04/30/19 02:21 Dose: 100 mls/hr Documented by: Sodium Chloride () 250 mls @ 15 mls/hr IV .[id number] PRN PRN Reason: Saline Flush Sodium Chloride () 250 mls @ 15 mls/hr IV .[id number] PRN PRN Reason: Additional IVPB Infusion Dextrose (Dextrose 10%-Water) 250 mls @ 999 mls/hr IV .Q16M PRN; Protocol PRN Reason: HYPOGLYCEMIA Last Infusion: 04/28/19 06:58 Dose: Infused Documented by: Insulin Human Lispro (Humalog [place] (Bkc)) 0 unit SC ACHS [facility]; Protocol Last Admin: 04/30/19 11:12 Dose: Not Given Documented by: Lamotrigine (Lamictal Chew) 25 mg PO DAILY [facility] Last Admin: 04/30/19 09:45 Dose: 25 mg Documented by: Levetiracetam (Keppra Tablet) 750 mg PO BID [facility] Last Admin: 04/30/19 09:43 Dose: 750 mg Documented by: Losartan Potassium (Cozaar) 100 mg PO DAILY [facility] Last Admin: 04/30/19 09:43 Dose: 100 mg Documented by: Metoprolol Tartrate (Lopressor (Beta Kayden)) 25 mg PO BID [facility] Last Admin: 04/30/19 09:45 Dose: 25 mg Documented by: Olanzapine (Zyprexa Zydis) 5 mg PO QHS [facility] Last Admin: 04/29/19 22:03 Dose: 5 mg Documented by: Ondansetron HCl (Zofran) 4 mg IV Q8H PRN PRN PRN Reason: NAUSEA/VOMITING Pantoprazole Sodium (Protonix) 20 mg PO DAILY [facility] Last Admin: 04/30/19 09:43 Dose: 20 mg Documented by: Sodium Chloride () 10 - 40 ml IV UD PRN PRN Reason: SALINE FLUSH Last Admin: 04/27/19 23:28 Dose: 10 ml Documented by: Tolterodine Tartrate (Detrol La) 2 mg PO DAILY [facility] Last Admin: 04/30/19 09:43 Dose: 2 mg Documented by: Trazodone HCl (Desyrel) 25 mg PO QHS [facility] Last Admin: 04/29/19 22:03 Dose: 25 mg Documented by: Disposition: Retirement facility Minutes spent on discharge:: 33 Patient Condition:: Stable Meaningful Use Info Meaningful Use Diagnoses (Choose all that apply): None applicable Code Visit Inpatient E&M: 33136 Disch Hosp
--- NOTE | 2019-04-30 11:40 | CASEMGMT ---
HEAVEN spoke with Hilda at [facility] and they are ready for patient today. HEAVEN let Hilda know that patient and family will be meeting with Palliative/Hospice Care tomorrow. [facility] HEAVEN completed a convalescent on [facility]. HEAVEN called [facility] and arranged for patient to get picked up at 1p via cot. HEAVEN notified RN, KLYSTROM TUBE TESTER, church secretary, Hilda at [facility], and patient's daughter. HEAVEN also faxed d/c information to [facility]. Plan: [facility] under skilled level of care. Palliative/Hospice to meet with patient and family Tuesday05-01-2019. [facility] Care transported via cot. Paula SUH MSW
--- NOTE | 2019-04-30 12:02 | NURSING ---
Report called to [facility], spoke to nurse Cardoza at 1200.
== END 2019-04-30 12:57 | disposition skilled nursing facility (03) | DRG 57 ==
LOC: ED 18:55 → PCU 22:45
PROVIDERS: Internal Medicine; Admitting Provider Hospitalist; Emergency Provider Emergency Medicine; PCP Internal Medicine; Visit Provider Hospitalist
DX: I69.351 Hemiplegia and hemiparesis following cerebral infarction affecting right dominant side (principal); E87.2 Acidosis; R29.6 Repeated falls; N18.3 Chronic kidney disease, stage 3 (moderate); E11.22 Type 2 diabetes mellitus with diabetic chronic kidney disease; G40.909 Epilepsy, unspecified, not intractable, without status epilepticus; I25.10 Atherosclerotic heart disease of native coronary artery without angina pectoris; I67.1 Cerebral aneurysm, nonruptured; E87.6 Hypokalemia; E83.42 Hypomagnesemia; Z66 Do not resuscitate; E86.0 Dehydration; F32.9 Major depressive disorder, single episode, unspecified; R91.1 Solitary pulmonary nodule; R53.81 Other malaise; E78.5 Hyperlipidemia, unspecified; Z79.02 Long term (current) use of antithrombotics/antiplatelets; Z95.5 Presence of coronary angioplasty implant and graft; Z79.82 Long term (current) use of aspirin; Z90.79 Acquired absence of other genital organ(s); Z85.46 Personal history of malignant neoplasm of prostate; Z79.84 Long term (current) use of oral hypoglycemic drugs; Z87.891 Personal history of nicotine dependence
CPT/HCPCS: 36415; 70450; 70544; 70547; 70551; 71045; 80048; 80076; 81001; 82962; 83036; 83605; 83735; 84100; 84484; 85025; 92526; 92610; 93005; 93306; 97110; 97116; 97162; 97166; 97530; 97535; 99251; 99282; J7030; Q9957; A4216; G0463

== ENCOUNTER → 2019-05-14 11:28 | Outpatient (CLI) | payer MEDICARE, OTHER, SELFPAY ==
[2019-04-27 22:21] VITALS: BMI 25.0
--- NOTE | 2019-05-14 12:00 | PET_ITS ---
EXAMINATION: FDG PET-CT INDICATIONS: A 78-year-old male with history of pulmonary nodularity. COMPARISON EXAMINATION: CT of the chest report dated 04/11/2019 INDEX LESION SIZE SUV INTERPRETATION Right lower posteromedial lung-right lower lobe 20.1-mm (frame 176) 1.3 Quantitative criteria for viable neoplasm are not fulfilled, sequential radiologic investigation recommended TECHNIQUE: Following the intravenous administration of 15.9 mCi of F-18 deoxyglucose via the left antecubital fossa, multiplanar image acquisitions of the neck, chest, abdomen and pelvis to level of mid thigh, obtained at one hour post radiopharmaceutical administration contemporaneously interpreted with the current CT of the neck, chest, abdomen and pelvis, to level of mid thigh, dated 05/14/[address] of the chest report dated 04/11/2019 reveals: BLOOD GLUCOSE LEVEL:?? 93 mg/dl?HEIGHT:?67 inches?WEIGHT: 165 lbs. FINDINGS: 1. Subtle increased glucose metabolism is defined in the right lower posteromedial lung-right lower lobe, infrahilar in location, generating a calculated maximal standard uptake value of 1.3. Quantitative criteria for viable pulmonary parenchymal neoplasm are not fulfilled. The maximal axial diameter of the defined parenchymal density on review of CT of the chest dated 05/14/2019 is 20.1-mm (transverse). 2. Normal physiologic distribution of the radiopharmaceutical is apparent in the hepatic (4.4) and splenic parenchyma, both renal units, bladder and visualized intestinal tract. The visualized portion of the cerebral cortex demonstrate symmetric and preserved glucose metabolism. Prominent glucose metabolism is defined in the descending thoracic, as well as abdominal aorta commensurate with activated leukocytes associated with atherosclerotic plaque formation. (Robert et al, Clinical Nuclear Medicine 29:93, 2004). Facilitated tracer concentration appears evident in the second-third lumbar vertebrae posteriorly on the right in proximity to the facet joints most consistent with degenerative arthritis. Pertinent CT findings are as follows: CHEST: There is atherosclerotic calcification defined in the thoracic aorta without evidence of dilatation-aneurysm formation. Coronary arterial calcification is observed. Bilateral axillary soft tissue densities with fatty hilus are non-glucose avid. There are no additional parenchymal densities-nodules defined in the right and left hemithorax demonstrating discernible increased glucose metabolism. Scattered subcentimeter parenchymal densities are ametabolic. ABDOMEN AND PELVIS: Cholelithiasis appears evident. There is atherosclerotic calcification defined in the abdominal aorta without evidence of dilatation-aneurysm formation. Abdominal-pelvic arterial calcification is observed. Right-left inguinal soft tissue densities with fatty hilus are ametabolic. Bilateral fat containing inguinal hernias are noted without evidence of increased glucose metabolism. Postsurgical changes are defined in the left lower hemipelvis with surgical clip placement observed. SKELETAL: Degenerative changes are noted in the cervical, thoracic and lumbar spine. PET/PET/CT Tumor Base -Thigh Init IMPRESSION: 1. NEGATIVE EXAMINATION. There is no definitive quantitative scintigraphic evidence of viable neoplasm. 2. The increase in FDG distribution identified in the right lower posteromedial lung-right lower lobe does not fulfill quantitative criteria for viable neoplasm. (Macho et al, Annals of Internal Medicine, 138:724, 2003). 3. Metabolic and/or anatomic stability may be ensured in the right hemithorax pulmonary parenchymal abnormality with repeat FDG PET study and/or CT of the thorax in three months. (Xiu, Journal of Nuclear Medicine 45:88, P2004 [place], Seminars in Thoracic and Cardiovascular Surgery 14:292, 2002). Electronic Signature Addison Romero D.O. Electronically Signed: Addison Romero DO at 0:07 EST Tel , Service support ,
== END ==
PROVIDERS: PCP Internal Medicine; Referring Provider Internal Medicine; Visit Provider Internal Medicine
DX: R91.1 Solitary pulmonary nodule (principal)
CPT/HCPCS: 78815; A9552

== ENCOUNTER → 2019-06-07 15:34 | Outpatient (CLI) | payer MEDICARE, OTHER, SELFPAY ==
[2019-04-27 22:21] VITALS: BMI 25.0
--- NOTE | 2019-06-07 15:41 | MRI_ITS ---
STUDY: MRI CERVICAL SPINE WITH AND WITHOUT CONTRAST REASON FOR EXAM: Male, 78 years old. Right arm and leg weakness x few months. TECHNIQUE: Standardized fat and water weighted pulse sequences were obtained in the sagittal and axial following administration of 13 mL of IV Dotarem. COMPARISON: CT cervical spine without contrast 03/29/2019. FINDINGS: Normal foramen magnum and brainstem-cervical cord junction. Normal craniovertebral junction. Normal anterior atlantoaxial articulation. Normal odontoid process. Straightening of the C-spine curve is unchanged. Multilevel anterior and posterior marginal spurs at C3-C4 down to C7-T1 disc space levels. No suspicious acute fractures. No malalignment. C2-3: Normal endplates. Normal disc height and morphology. Normal central canal and intervertebral neural foramina. C3-4: Pronounced disc space height narrowing. Anterior and posterior marginal spurs. Normal central canal. Moderately pronounced stenosis of the left intervertebral neural foramen. Mild stenosis of the right intervertebral neural foramen. C4-5: Pronounced disc space height narrowing with anterior and posterior marginal spurs. Mild central canal stenosis with an AP canal diameter of 7 mm. Pronounced stenosis of the right intervertebral neural foramen. Mild stenosis of the left intervertebral neural foramen. C5-6: Pronounced disc space narrowing with anterior and posterior marginal spurs. Mild central canal stenosis with an AP canal diameter of 7 mm. Pronounced stenosis of the right intervertebral neural foramen. Mild stenosis of the left intervertebral neural foramen. C6-7: Anterior and posterior marginal spurs. Moderate pronounced disc space height narrowing. Normal central canal. Mild stenosis of the right intervertebral neural foramen. Normal left intervertebral neural foramen. C7-T1: Anterior and posterior marginal spurs. Pronounced disc space height narrowing. Normal central canal and mild stenosis of the right intervertebral neural foramen. Normal left intervertebral neural foramen. T1-T2: (Sagittal only). Normal endplates. Mild disc space height narrowing. Small posterior bulging disc. Normal central canal and intervertebral neural foramina. T2-T3: (Sagittal only). Normal endplates. Minimal disc space height narrowing. Small posterior bulging disc. Normal central canal and intervertebral neural foramina. T3-T4: (Sagittal only). Normal endplates. Normal disc height and morphology. Normal central canal and intervertebral neural foramina. T4-T5: (Sagittal only). Normal endplates. Normal disc height and morphology. Normal central canal and intervertebral neural foramina. Normal cervical cord. No abnormal enhancing lesions intradurally and extradurally. Normal visualized soft tissue structures. MRI/Spine Cervical W/WO Contrast IMPRESSION: 1. Pronounced C3-C4 disc space height narrowing, moderate pronounced stenosis of the left intervertebral neural foramen and mild stenosis of the right intervertebral neural foramen. 2. Pronounced C4-C5 disc space height narrowing, mild central canal stenosis with an AP canal diameter 7 mm and pronounced stenosis of the right intervertebral neural foramen. 3. Pronounced C5-C6 disc space height narrowing with mild central canal stenosis and pronounced stenosis of the right intervertebral neural foramen. 4. Moderately pronounced C6-C7 disc space height narrowing and mild stenosis of the right intervertebral neural foramen. 5. Pronounced C7-T1 disc space height narrowing and mild stenosis of the right intervertebral neural foramen. 6. No MRI evidence of cervical extruded disc fragment. 7. Normal cervical spinal cord. 8. No abnormal enhancing lesions intradurally and extradurally. Electronically Signed: Parag Kelly MD at 13:34 EDT , Service support ,
== END ==
PROVIDERS: PCP Internal Medicine; Referring Provider Psychiatry & Neurology Neurology; Visit Provider Psychiatry & Neurology Neurology
DX: M48.02 Spinal stenosis, cervical region (principal)
CPT/HCPCS: 72156; A9575

== ENCOUNTER 2020-02-23 03:54 | Emergency (ER) | payer MEDICARE, MEDICAID, OTHER, SELFPAY ==
[2019-04-27 22:21] VITALS: BMI 25.0
[2020-02-23 03:55] VITALS: BP 111/78; PULSE 89; RESP 18; TEMP 36.2; O2SAT 95; BMI 24.7
[2020-02-23 03:59] VITALS: TEMP 36.2
--- NOTE | 2020-02-23 04:22 | CT_ITS ---
STUDY: CT BRAIN WITHOUT CONTRAST REASON FOR EXAM: Male, 79 years old patient with recent fall. Patient is on Plavix. Patient is COVID positive. Patient has shingles with rash on right forehead affecting right eye. Patient has history of untreated cerebral aneurysm. RADIATION DOSAGE (If Supplied By Facility): CTDIvol = ( 44.99 ) mGy, DLP = ( 796.11 ) mGycm TECHNIQUE: Transaxial CT imaging of the brain was performed without administration of intravenous contrast material. Multiplanar reformations are submitted for interpretation. Individualized dose optimization techniques were used for this CT. COMPARISON: MRI of the brain dated 04/28/2019. FINDINGS: Normal soft tissue structures. Normal calvarium. There is mild cerebral atrophy with widening of the extra-axial spaces and ventricular dilatation. There are areas of decreased attenuation within the white matter tracts of the supratentorial brain, consistent with microvascular disease changes. Normal basal ganglia and thalami. Normal brainstem. There is mild cerebellar atrophy. There is no intracranial hemorrhage. There is mild atherosclerotic calcification of the intracranial arteries. Normal visualized paranasal sinuses. CT/Brain/Head without Contrast IMPRESSION: 1. Chronic involutional changes of the brain. 2. No CT evidence of acute intracranial hemorrhage. Electronically Signed: Darby Lewis MD at 5:36 EST , Service support ,
--- NOTE | 2020-02-23 04:27 | ED.DCSUM_ITS ---
- ER Visit Summary Date of Service: 02/23/20 Chief Complaint: Slid out of bed and hit his head History of Present Illness: The patient is a 79 M history of dementia, stroke, CAD with stent, diabetes, renal insufficiency Covid positive within the last 2 weeks and shingles rash on his right forehead. Per the prison patient set up bed in his head. He denies any complaints. He denies any LOC. He is a limited informant. Physical Examination: Elderly male vital signs stable and afebrile. Pulse ox 95% on room air no signs hypoxia. H EENT exam right forehead shingles. Involves the eyelids. Is right eyes closed. Left he can open. No signs of trauma to his face or scalp. Nontender. Lungs clear to auscultation bilaterally. Heart regular rhythm no murmur. Chest wall nontender. Abdomen soft nontender. Pelvic girdle intact. Patient is moving all 4 extremities. There is no gross bony deformity. He can raise both arms. And lift both legs off the bed. Neurologically is awake. He is following commands. He is answering questions. There are no focal motor deficits. Test Results: CAT scan of the brain without contrast reviewed by me and read by the radiologist shows chronic changes. No acute intracranial bleed. No skull fracture. No obvious scalp hematoma. Emergency Department Course and Treatment: Older male from a prison reportedly slipped getting out of bed and hit his head. He is reportedly on Plavix. CAT scan of his brain is being obtained. Treatment Plan: Injury instructions. Tylenol for pain. Follow-up if intractable vomiting or not acting himself. Disposition: Discharge Impression: Fall Closed head injury Known Covid positive Right forehead and scalp shingles Anticoagulated on Plavix This note was generated with [employer] dictation software. It may contain incorrect words, spelling, and punctuation that were not noted in review of the chart prior to signing ED Disposition - Plan for ED Patient: Referrals: [facility] Doctor,Out of [NON-STAFF] -
--- NOTE | 2020-02-23 05:30 | ED.DEP ---
ED Disposition - Plan for ED Patient: Disposition: Home or Assisted Living Instructions: ED Head Injury Adult Referrals: [facility],Out of [NON-STAFF] - As Needed Additional Instructions: CAT scan tonight showed no signs of acute intracranial bleed. Tylenol for any pain. Have patient reevaluated if intractable vomiting or not acting his baseline.
[2020-02-23 05:57] VITALS: BP 120/74; PULSE 88; RESP 18; O2SAT 97
--- NOTE | 2020-02-23 06:35 | ED.RN ---
attempted to call report, no answer.
--- NOTE | 2020-02-23 06:56 | ED.RN ---
Attempted to call report to [facility], again no response.
== END 2020-02-23 08:33 | disposition home or self-care (01) ==
PROVIDERS: Emergency Provider Emergency Medicine
DX: S09.90XA Unspecified injury of head, initial encounter (principal); W06.XXXA Fall from bed, initial encounter; Y93.9 Activity, unspecified; Y92.129 Unspecified place in nursing home as the place of occurrence of the external cause; U07.1 COVID-19; B02.9 Zoster without complications; I25.10 Atherosclerotic heart disease of native coronary artery without angina pectoris; F03.90 Unspecified dementia, unspecified severity, without behavioral disturbance, psychotic disturbance, mood disturbance, and anxiety; E11.9 Type 2 diabetes mellitus without complications; N28.9 Disorder of kidney and ureter, unspecified; E78.00 Pure hypercholesterolemia, unspecified; G40.909 Epilepsy, unspecified, not intractable, without status epilepticus; Z86.73 Personal history of transient ischemic attack (TIA), and cerebral infarction without residual deficits; Z85.46 Personal history of malignant neoplasm of prostate; Z95.5 Presence of coronary angioplasty implant and graft; Z79.4 Long term (current) use of insulin; Z79.02 Long term (current) use of antithrombotics/antiplatelets; Z79.82 Long term (current) use of aspirin; Z79.899 Other long term (current) drug therapy
CPT/HCPCS: 70450; 99283

== ENCOUNTER 2020-08-07 16:49 | Emergency (ER) | payer MEDICARE, MEDICAID, OTHER, SELFPAY ==
[2020-08-07] VITALS (15 sets, daily range): BP systolic 113–153; BP diastolic 72–96; PULSE 122–135; RESP 15–25; TEMP 36.9–37.9; O2SAT 84–96; BMI 25.6
--- NOTE | 2020-08-07 17:28 | CT_ITS ---
STUDY: CT BRAIN WITHOUT CONTRAST REASON FOR EXAM: Male, 79 years old. Flaccid left side, Babinski sign, head trauma RADIATION DOSAGE (If Supplied By Facility): CTDIvol = ( 38.43 ) mGy, DLP = ( 698.28 ) mGycm TECHNIQUE: Transaxial CT imaging of the brain was performed without administration of intravenous contrast material. Individualized dose optimization techniques were used for this CT. COMPARISON: Prior head CT examination of 02/23/2020 FINDINGS: Normal soft tissue structures. Normal calvarium. There is mild cerebral atrophy with widening of the extra-axial spaces and ventricular dilatation. There are areas of decreased attenuation within the white matter tracts of the supratentorial brain, consistent with microvascular disease changes. Normal basal ganglia and thalami. Normal brainstem. There is mild cerebellar atrophy. There is no intracranial hemorrhage. There are no findings of an acute ischemic infarction. Normal visualized paranasal sinuses. CT/Brain/Head without Contrast IMPRESSION: No acute intracranial findings or changes. Negative for hemorrhage, hematoma or extra-axial fluid collection. Stable mild involutional changes. Electronically Signed: Matilda Nichols MD at 18:05 EDT , Service support ,
--- NOTE | 2020-08-07 17:28 | EKG12_ITS ---
Test Reason : SOB Blood Pressure : / mmHG Vent. Rate : 126 BPM Atrial Rate : 126 BPM P-R Int : 168 ms QRS Dur : 074 ms QT Int : 306 ms P-R-T Axes : 048 053 042 degrees QTc Int : 443 ms Sinus tachycardia Low voltage QRS (Limb Leads) Confirmed by MARTIN CHAMPAGNE, JESUSITA ([id number]), editorial writer SUSIE MATHEW ([id number]) on 08/11/2020 2:49:39 PM Referred By: ES/UG Confirmed By:JESUSITA SALAZAR MD
--- NOTE | 2020-08-07 17:42 | RAD_ITS ---
STUDY: X-RAY CHEST REASON FOR EXAM: Male, 79 years old. Hypoxia, difficulty controlling secretions TECHNIQUE: 1 view COMPARISON: Prior chest radiograph of 04/27/2019 FINDINGS: Limited inspiration with mild generalized bibasilar atelectatic changes without other broad consolidation or infiltrates. There is no demonstrated pleural abnormality. Normal size heart. Normal mediastinum and ester. Normal visualized pulmonary arteries. There is atherosclerotic calcification of the aortic arch with tortuosity. There are diffuse degenerative changes of the visualized thoracic spine. Normal visualized ribs, clavicles, and shoulders. There is no demonstrated abnormality of the visualized soft tissue structures of the upper abdomen. RAD/Chest 1 View (Portable) IMPRESSION: Limited inspiration with mild generalized bibasilar atelectatic changes without other acute cardiopulmonary findings. Electronically Signed: Matilda Nichols MD at 18:06 EDT , Service support ,
[2020-08-07 17:52] LABS: Absolute Lymphocyte Count 0.83 X10^3/uL (0.83-4.51); Absolute Neutrophil Count 9.5 X10^3/uL (2.0-7.7); Basophil# 0.05 X10^3/uL; Basophil% 0.4 % (0-1); Eosinophil# 0.03 X10^3/uL; Eosinophils% 0.3 % (0-5); Hematocrit 43.9 % (40-54); Hemoglobin 14.5 g/dL (13.0-16.5); Lymphocyte # 0.83 X10^3/ul (0.83-4.51); Lymphocyte % 7.4 % (19-41); Mean Corpuscular Hgb 29.4 pg (27.0-32.0); Mean Corpuscular Volume 88.9 fL (80-94); Mean Platelet Vol. 10.5 fl (6.2-12.0); Monocyte# 0.68 X10^3/uL; Monocyte% 6.1 % (0-10); NRBC Flagged by Analyzer 0 % (0-5); Neutrophil # 9.52 X10^3/uL (2.7-7.7); Neutrophil % 85.4 % (47-70); Platelet Count 278 K/mm3 (150-450); RBC Distribution Width CV 13.3 % (11.6-14.6); RBC Distribution Width SD 43.1 fl (35.1-43.9); Red Blood Count 4.94 M/mm3 (4.6-6.2); White Blood Count 11.2 K/mm3 (4.4-11.0)
--- NOTE | 2020-08-07 17:54 | EDS_ITS ---
HPI History of Present Illness Chief Complaint: Shortness of Breath Detail of Chief Complaint: And altered mental status and flaccid left side Informant: EMS and SNF Onset/Context/Timing Onset: - (Unknown since not well documented on nursing documents from facility and patient not able to voice.) Context: - (Patient had a fall. According to daughter who was contacted he was using his left side to feed himself. Uncertain last time he was well.) Timing: Continuous Quality: Flaccid left side, decreased level conscious, concern for aspiration Location: Nursing facility Current Severity: Severe Maximum Severity: Severe Worsened by: Nothing Relieved by: Nothing Associated Symptoms Associated Symptoms: Unable to determine Narrative Narrative: Patient is an elderly male with multiple medical problems which include coronary disease, dementia, type 2 diabetes, hyperlipidemia, stage III chronic renal disease, brain aneurysm and seizure disorder. He apparently had a stroke as well. Daughter stated it affected his right side. He is very difficult to understand. He apparently knows his name according the nurse who could understand him. History is very limited. Prior similar symptoms: No Recent Illness/Hospitalization: Yes (Bilateral pneumonia) [facility] Medical History Aneurysm, cerebral, nonruptured Atherosclerotic heart disease of [place] coronary artery without angina pectoris Bipolar disorder Diabetes Dysphagia Stroke/cerebrovascular accident Home Medications aspirin 81 mg PO DAILY 11/16/18 [History Last Taken 08/07/20] clopidogrel 75 mg PO DAILY 11/16/18 [History Last Taken 08/07/20] ferrous sulfate 325 mg PO DAILY@0800 11/16/18 [History Last Taken 08/07/20] omeprazole 20 mg PO DAILY 11/16/18 [History Last Taken 08/07/20] citalopram 10 mg PO QHS 04/23/19 [History Last Taken 08/07/20] donepezil 10 mg PO QHS 04/23/19 [History Last Taken 08/06/20] lamotrigine 25 mg PO DAILY 04/23/19 [History Last Taken 08/07/20] olanzapine 5 mg PO QHS 04/23/19 [History Last Taken 08/06/20] glimepiride 4 mg PO DAILY 04/27/19 [History Last Taken 08/07/20] oxybutynin chloride 10 mg PO DAILY 04/27/19 [History Last Taken 08/07/20] atorvastatin 40 mg PO QHS 02/23/20 [History Last Taken 08/06/20] fenofibrate micronized 200 mg PO DAILY 02/23/20 [History Last Taken 08/07/20] albuterol sulfate 2 inh INHALATION TID 08/07/20 [History Last Taken 08/07/20] carboxymethylcellulose sodium 1 drp EACH EYE 4X/DAY 08/07/20 [History Last Taken 08/07/20] cefdinir 300 mg PO Q12H 08/07/20 [History Last Taken 08/07/20] ceftriaxone 1 g IM DAILY 08/07/20 [History Last Taken 08/07/20] cholecalciferol (vitamin D3) 125 mcg PO DAILY 08/07/20 [History Last Taken 08/07/20] doxycycline hyclate 100 mg PO BID 08/07/20 [History Last Taken 08/07/20] dulaglutide [Trulicity] 1.5 mg SUBCUT WE 08/07/20 [History Last Taken 08/06/20] guaifenesin [Mucinex] 600 mg PO BID 08/07/20 [History Last Taken Unknown] insulin aspart U-100 [Novolog Flexpen U-100 Insulin] 7 unit SUBCUT LUNCH 08/07/20 [History Last Taken 08/07/20] insulin aspart U-100 [Novolog Flexpen U-100 Insulin] 10 unit SUBCUT BREAKFAST 08/07/20 [History Last Taken 08/07/20] levetiracetam 500 mg PO BID 08/07/20 [History Last Taken 08/07/20] losartan 50 mg PO DAILY 08/07/20 [History Last Taken 08/07/20] mirtazapine 7.5 mg PO QHS 08/07/20 [History Last Taken 08/06/20] omega-3 fatty acids [[place] 3 Fish Oil] 1,000 mg PO DAILY 08/07/20 [History Last Taken 08/07/20] prednisone 20 mg PO DAILY 08/07/20 [History Last Taken 08/07/20] white petrolatum-mineral oil 1 applic RIGHT EYE 4X/DAY 08/07/20 [History Last Taken 08/07/20] white petrolatum-mineral oil [Systane Nighttime] 1 applic LEFT EYE DAILY 08/07/20 [History Last Taken 08/06/20] Allergy/AdvReac Type Severity Reaction Status Date / Time chocolate flavor AdvReac PT UNABLE Verified 08/07/20 18:10 TO RESPOND-NEEDS F/U unable to obtain Social History (Updated 08/07/20 @ 17:[address] Brian Agarwal MD) housing: senior living Smoking Status: Unknown if ever smoked details: Unable to determine substance use type: unknown ROS ROS ED Review of Systems ROS Unobtainable: due to mental condition and due to mental status EXAM Physical Exam Const Vital Signs: 08/07/20 16:50 08/07/20 17:14 08/07/20 17:16 Temperature 99.3 F H 100.3 F H Temperature Source Temporal Oral Pulse Rate 125 H 129 H Respiratory Rate 20 H 23 H Respiratory Effort Short of Breath Respiratory Pattern Hyperpnea Blood Pressure 153/89 H Blood Pressure Mean 110 Pulse Ox 92 94 Oxygen Delivery Method Non-Rebreather Nasal Cannula Oxygen Flow Rate (L/min) 15 4 Fraction of Inspired Oxygen (FIO2) 08/07/20 17:30 08/07/20 17:37 08/07/20 17:43 Temperature 99 F 100.3 F H Temperature Source Temporal Oral Pulse Rate 122 H Respiratory Rate 17 Respiratory Effort Respiratory Pattern Blood Pressure 115/72 113/76 Blood Pressure Mean 86 88 Pulse Ox 94 94 Oxygen Delivery Method Venturi Mask Venturi Mask Oxygen Flow Rate (L/min) 12 12 Fraction of Inspired Oxygen (FIO2) 50 08/07/20 18:25 Temperature 98.5 F Temperature Source Temporal Pulse Rate 127 H Respiratory Rate 15 Respiratory Effort Respiratory Pattern Blood Pressure 148/89 H Blood Pressure Mean 108 Pulse Ox 94 Oxygen Delivery Method Venturi Mask Oxygen Flow Rate (L/min) 15 Fraction of Inspired Oxygen (FIO2) 50 Positive well nourished and well developed General Appearance ED: well developed and pallor; Negative for cyanotic HEENT Reports TM's clear and moist mucous membranes HEENT Narrative: There is no clinical findings of basilar skull fracture. There is no palpable depression. Negative for trauma Tympanic Membrane ED: Yes TM's clear Eyes PERRL and EOMs intact bilaterally Eyes Narrative: There is no subconjunctival hemorrhage noted. General Eye ED: Negative for pale conjunctiva or scleral icterus Neck no lymphadenopathy and no JVD General: Negative for tenderness Chest Wall inspection of chest normal Resp No normal respiratory effort and No clear to auscultation bilaterally Auscultation: rales, wheezes and diminished lung sounds Cardio regular rhythm, S1 normal heart sound, S2 normal heart sound and no murmurs Rate: tachycardic GI non-tender, non-distended and no masses Palpation: soft Back/Spine no CVA tenderness Cervical Spine: Negative for cervical spine tenderness Thoracic Spine / Upper Back: Negative for thoracic spinal tenderness Extremity General Extremety ED: Yes edema General Extremity: edema Neuro No oriented x3 Neuro Narrative: Patient does have a Babinski sign on the left. He moves his foot slightly to noxious stimuli. Sensorium / Orientation: lethargic; Negative for alert Sensory Exam: sensory level loss detected Motor Exam: Negative for strength 5/5 throughout Psych Psych Narrative: Unable to determine Skin General Skin Exam: pallor; Negative for jaundice MDM MDM MDM Narrative Medical decision making narrative: History of fall from [place] altered mental status with acute neurologic findings need to rule out intracranial bleed versus stroke. Concern patient aspirated since he is on Venturi mask. Sepsis work-up was initiated. Sepsis treatment was started for healthcare acquired pneumonia/aspiration. Will speak with daughter when she arrives regarding intubation, neurosurgery if indicated and how aggressive to treat his current symptoms. CODE STATUS was discussed with daughter. He is no intubation, no CPR, fluids of beneficial patient. She is uncertain regarding tube feeds. Patient according to daughter has a poor quality of life. He is dependent on others to feed him, bathe him and clothe him. Stroke team is not called since we do not know when this occurred. Documents that accompany patient are vague. Patient is presently on Venturi mask at 50%. There is concern he he aspirated has aspiration pneumonitis. There is evidence of endorgan injury with elevation of his creatinine and there is elevation of his lactate. Will discuss case with hospitalist since he is no intubation no CPR no pressors. Lab Data Attestation: I reviewed the patient's lab results. Lab results narrative: Patient has evidence of hemoconcentration. BUN and creatinine is elevated from prior. He does have evidence of endorgan injury. Labs: Laboratory Results - last 24 hr 08/07/20 08/07/20 08/07/20 17:25 17:25 17:25 WBC 11.2 H RBC 4.94 Hgb 14.5 Hct 43.9 MCV 88.9 MCH 29.4 MCHC 33.0 RDW Std Deviation 43.1 RDW Coeff of [place] 13.3 Plt Count 278 MPV 10.5 Immature Gran % (Auto) 0.400 Neut % (Auto) 85.4 H Lymph % (Auto) 7.4 L [place] % (Auto) 6.1 Eos % (Auto) 0.3 Baso % (Auto) 0.4 Absolute Neuts (auto) 9.5 H Absolute Lymphs (auto) 0.83 Nucleated RBC % 0 PT 13.5 INR 1.1 APTT 25.0 Sodium 137 Potassium 3.9 Chloride 104 Carbon Dioxide 22.0 Anion Gap 11 BUN 32 H Creatinine 2.89 H Estim Creat Clear Calc 22.38 Est GFR (MDRD) Af Amer 27 L Est GFR (MDRD) Non-Af 22 L BUN/Creatinine Ratio 11.1 Glucose 184 H Lactic Acid Calcium 10.0 Total Bilirubin 0.80 AST 25 ALT 27 Alkaline Phosphatase 35 L Total Protein 7.9 Albumin 3.9 Globulin 4.0 Albumin/Globulin Ratio 1.0 Urine Color Urine Clarity Urine pH Ur Specific [place] Urine Protein Urine Glucose (UA) Urine Ketones Urine Occult Blood Urine Nitrite Urine Bilirubin Urine Urobilinogen Ur Leukocyte Esterase Urine RBC Urine WBC Ur Squamous Epith Cells Urine Bacteria Urine Mucus 08/07/20 08/07/20 17:25 18:20 WBC RBC Hgb Hct MCV MCH MCHC RDW Std Deviation RDW Coeff of [place] Plt Count MPV Immature Gran % (Auto) Neut % (Auto) Lymph % (Auto) [place] % (Auto) Eos % (Auto) Baso % (Auto) Absolute Neuts (auto) Absolute Lymphs (auto) Nucleated RBC % PT INR APTT Sodium Potassium Chloride Carbon Dioxide Anion Gap BUN Creatinine Estim Creat Clear Calc Est GFR (MDRD) Af Amer Est GFR (MDRD) Non-Af BUN/Creatinine Ratio Glucose Lactic Acid 2.7 H* Calcium Total Bilirubin AST ALT Alkaline Phosphatase Total Protein Albumin Globulin Albumin/Globulin Ratio Urine Color Yellow Urine Clarity Clear Urine pH 5.0 Ur Specific [place] 1.025 Urine Protein 30 H Urine Glucose (UA) 250 H Urine Ketones 15 H Urine Occult Blood 10 H Urine Nitrite Negative Urine Bilirubin Negative Urine Urobilinogen Normal Ur Leukocyte Esterase Negative Urine RBC 5-10 SEEN Urine WBC 0 SEEN Ur Squamous Epith Cells 0-5 SEEN Urine Bacteria 0 SEEN Urine Mucus 1+ Radiography Chest X-Ray - ED: 1 View, Read by ED Physician, Normal, Bony Structures, Chronic Changes and - (Chest x-ray is difficult to evaluate because inspiratory volume is limited.) Diagnostic Testing: Radiology Impression Brain CT 08/07/20 17:28 IMPRESSION: No acute intracranial findings or changes. Negative for hemorrhage, hematoma or extra-axial fluid collection. Stable mild involutional changes. Electronically Signed: Matilda Nichols MD at 18:05 EDT , Service support , Chest X-Ray 08/07/20 17:42 IMPRESSION: Limited inspiration with mild generalized bibasilar atelectatic changes without other acute cardiopulmonary findings. Electronically Signed: Matilda Nichols MD at 18:06 EDT , Service support , CT was reviewed and there is no evidence of intracranial bleed or obvious stroke. 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
[2020-08-07 18:02] LABS: International Normalized Ratio 1.1; Prothrombin Time (Protime)PT. 13.5 SECONDS (11.7-14.9)
[2020-08-07 18:19] LABS: AST(SGOT) 25 U/L (15-37); Alanine Aminotransfer ALT/SGPT 27 U/L (16-61); Albumin, Serum 3.9 g/dL (3.2-5.0); Alkaline Phosphatase 35 U/L (45-117); Anion Gap 11 (5-15); BUN 32 mg/dL (7-18); BUN/Creat Ratio 11.1 RATIO (10-20); Chloride 104 mmol/L (98-107); Creatinine, Serum 2.89 mg/dL (0.70-1.30); EST Glomerular Filtration Rate 22 mL/min (>60); Est Glom Filt Rate - Afr Amer 27 mL/min (>60); Estimated Creatinine Clearance 22.38 ml/min; Glucose 184 mg/dL (74-106); Potassium 3.9 mmol/L (3.5-5.1); Protein, Total 7.9 g/dL (6.4-8.2); Sodium Level 137 mmol/L (136-145)
[2020-08-07] MEDS: 0.9% Normal Saline 1,000 ML 150 ML IV (18:19)
[2020-08-07 18:26] LABS: Bacteria 0 SEEN /hpf (None Seen); White Blood Cells 0 SEEN /hpf (0-5)
[2020-08-07 18:30] LABS: Color, Urine Yellow (Yellow); Glucose, Dipstick 250 mg/dl (Normal); Ketone-Dipstick 15 mg/dl (Negative); Leukocyte Esterase-Dipstick Negative /ul (Negative); Nitrite-Dipstick Negative (Negative); Occult Blood-Urine 10 /ul (Negative); Protein-Dipstick 30 mg/dl (Negative); Specific Gravity, Urine 1.025 (1.002-1.030); Urine Bilirubin Dipstick Negative (Negative); Urine Clarity Clear (Clear); Urine Urobilinogen Normal (Normal)
[2020-08-07 18:31] LABS: Lactic Acid 2.7 mmol/L (0.4-1.9)
[2020-08-07 18:39] LABS: Mucous, Urine 1+ /hpf (<or=2+); Red Blood Cells-Urine 5-10 SEEN /hpf (0-5); Squamous Epithelial Cells - UA 0-5 SEEN /hpf (0-5)
--- NOTE | 2020-08-07 20:50 | HP.PCM.HOS_ITS ---
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 Associated of his symptoms is fatigue and lethargy. His symptoms started on the same day of presentation. Further, patient was found to have paralysis of his left side with a time of onset is unknown. History was taken from the patient family who was at the bedside since patient is incoherent. [facility] Medical History (Updated 08/07/20 @ 21:[address] 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 Bipolar disorder Diabetes Dysphagia Stroke/cerebrovascular accident Home Medications aspirin 81 mg PO DAILY 11/16/18 [History Last Taken 08/07/20] clopidogrel 75 mg PO DAILY 11/16/18 [History Last Taken 08/07/20] ferrous sulfate 325 mg PO DAILY@0800 11/16/18 [History Last Taken 08/07/20] omeprazole 20 mg PO DAILY 11/16/18 [History Last Taken 08/07/20] citalopram 10 mg PO QHS 04/23/19 [History Last Taken 08/07/20] donepezil 10 mg PO QHS 04/23/19 [History Last Taken 08/06/20] lamotrigine 25 mg PO DAILY 04/23/19 [History Last Taken 08/07/20] olanzapine 5 mg PO QHS 04/23/19 [History Last Taken 08/06/20] glimepiride 4 mg PO DAILY 04/27/19 [History Last Taken 08/07/20] oxybutynin chloride 10 mg PO DAILY 04/27/19 [History Last Taken 08/07/20] atorvastatin 40 mg PO QHS 02/23/20 [History Last Taken 08/06/20] fenofibrate micronized 200 mg PO DAILY 02/23/20 [History Last Taken 08/07/20] albuterol sulfate 2 inh INHALATION TID 08/07/20 [History Last Taken 08/07/20] carboxymethylcellulose sodium 1 drp EACH EYE 4X/DAY 08/07/20 [History Last Taken 08/07/20] cefdinir 300 mg PO Q12H 08/07/20 [History Last Taken 08/07/20] ceftriaxone 1 g IM DAILY 08/07/20 [History Last Taken 08/07/20] cholecalciferol (vitamin D3) 125 mcg PO DAILY 08/07/20 [History Last Taken 08/07/20] doxycycline hyclate 100 mg PO BID 08/07/20 [History Last Taken 08/07/20] dulaglutide [Trulicity] 1.5 mg SUBCUT WE 08/07/20 [History Last Taken 08/06/20] guaifenesin [Mucinex] 600 mg PO BID 08/07/20 [History Last Taken Unknown] insulin aspart U-100 [Novolog Flexpen U-100 Insulin] 7 unit SUBCUT LUNCH 08/07/20 [History Last Taken 08/07/20] insulin aspart U-100 [Novolog Flexpen U-100 Insulin] 10 unit SUBCUT BREAKFAST 08/07/20 [History Last Taken 08/07/20] levetiracetam 500 mg PO BID 08/07/20 [History Last Taken 08/07/20] losartan 50 mg PO DAILY 08/07/20 [History Last Taken 08/07/20] mirtazapine 7.5 mg PO QHS 08/07/20 [History Last Taken 08/06/20] omega-3 fatty acids [[place] 3 Fish Oil] 1,000 mg PO DAILY 08/07/20 [History Last Taken 08/07/20] prednisone 20 mg PO DAILY 08/07/20 [History Last Taken 08/07/20] white petrolatum-mineral oil 1 applic RIGHT EYE 4X/DAY 08/07/20 [History Last Taken 08/07/20] white petrolatum-mineral oil [Systane Nighttime] 1 applic LEFT EYE DAILY 08/07/20 [History Last Taken 08/06/20] Allergy/AdvReac Type Severity Reaction Status Date / Time chocolate flavor AdvReac PT UNABLE Verified 08/07/20 18:10 TO RESPOND-NEEDS F/U unable to obtain (Unable to obtain secondary to encephalopathy. Family was at bedside is unable to provide.) Surgical History H/O transurethral resection of prostate History of herniorrhaphy Social History housing: intermediate Smoking Status: Unknown if ever smoked details: Unable to determine substance use type: unknown ROS ROS Narrative 12 point review of system is negative except as stated in HPI Vital Signs Vital Signs Vital Signs: 08/07/20 16:50 08/07/20 17:14 08/07/20 17:16 Temperature 99.3 F H 100.3 F H Temperature Source Temporal Oral Pulse Rate 125 H 129 H Respiratory Rate 20 H 23 H Respiratory Effort Short of Breath Respiratory Pattern Hyperpnea Blood Pressure 153/89 H Blood Pressure Mean 110 Pulse Ox 92 94 Oxygen Delivery Method Non-Rebreather Nasal Cannula Oxygen Flow Rate (L/min) 15 4 Fraction of Inspired Oxygen (FIO2) 08/07/20 17:30 08/07/20 17:37 08/07/20 17:43 Temperature 99 F 100.3 F H Temperature Source Temporal Oral Pulse Rate 122 H Respiratory Rate 17 Respiratory Effort Respiratory Pattern Blood Pressure 115/72 113/76 Blood Pressure Mean 86 88 Pulse Ox 94 94 Oxygen Delivery Method Venturi Mask Venturi Mask Oxygen Flow Rate (L/min) 12 12 Fraction of Inspired Oxygen (FIO2) 50 08/07/20 18:25 08/07/20 19:00 08/07/20 20:00 Temperature 98.5 F 98.9 F 99.3 F H Temperature Source Temporal Temporal Temporal Pulse Rate 127 H 131 H 131 H Respiratory Rate 15 19 H 19 H Respiratory Effort Respiratory Pattern Blood Pressure 148/89 H 141/82 H 149/96 H Blood Pressure Mean 108 101 113 Pulse Ox 94 93 93 Oxygen Delivery Method Venturi Mask Venturi Mask Venturi Mask Oxygen Flow Rate (L/min) 15 12 12 Fraction of Inspired Oxygen (FIO2) 50 50 50 08/07/20 20:05 Temperature 99.3 F H Temperature Source Temporal Pulse Rate 133 H Respiratory Rate 18 Respiratory Effort Respiratory Pattern Blood Pressure 129/73 H Blood Pressure Mean 91 Pulse Ox 96 Oxygen Delivery Method Venturi Mask Oxygen Flow Rate (L/min) 12 Fraction of Inspired Oxygen (FIO2) 50 Physical Exam Narrative Lethargic. Nontraumatic; normocephalic Rhonchorous throughout Tachycardia heart sounds S1-S2. No murmur, gallop or rubs. Abdomen bowel sounds present soft, nontender nondistended Extremity: Unable to raise left upper extremity. Unable to raise left lower extremity. Noted to mildly wiggle left lower leg without moving it above gravity. Able to mildly raise right lower leg above gravity. Strength 3 out of 5 in right upper extremity. Right side gaze. Unable to perform extraocular muscle movements. Left eye does not react to light. About 3 mm left pupil size. That will allow the right side to be obtained for eye examination. Mild dysarthria Lab / Micro Data Result Diagrams: 08/07/20 17:25 08/07/20 17:25 Labs: Laboratory Results - last 24 hr 08/07/20 08/07/20 08/07/20 17:25 17:25 17:25 WBC 11.2 H RBC 4.94 Hgb 14.5 Hct 43.9 MCV 88.9 MCH 29.4 MCHC 33.0 RDW Std Deviation 43.1 RDW Coeff of [place] 13.3 Plt Count 278 MPV 10.5 Immature Gran % (Auto) 0.400 Neut % (Auto) 85.4 H Lymph % (Auto) 7.4 L [place] % (Auto) 6.1 Eos % (Auto) 0.3 Baso % (Auto) 0.4 Absolute Neuts (auto) 9.5 H Absolute Lymphs (auto) 0.83 Nucleated RBC % 0 PT 13.5 INR 1.1 APTT 25.0 Sodium 137 Potassium 3.9 Chloride 104 Carbon Dioxide 22.0 Anion Gap 11 BUN 32 H Creatinine 2.89 H Estim Creat Clear Calc 22.38 Est GFR (MDRD) Af Amer 27 L Est GFR (MDRD) Non-Af 22 L BUN/Creatinine Ratio 11.1 Glucose 184 H Lactic Acid Calcium 10.0 Total Bilirubin 0.80 AST 25 ALT 27 Alkaline Phosphatase 35 L Total Protein 7.9 Albumin 3.9 Globulin 4.0 Albumin/Globulin Ratio 1.0 Urine Color Urine Clarity Urine pH Ur Specific [place] Urine Protein Urine Glucose (UA) Urine Ketones Urine Occult Blood Urine Nitrite Urine Bilirubin Urine Urobilinogen Ur Leukocyte Esterase Urine RBC Urine WBC Ur Squamous Epith Cells Urine Bacteria Urine Mucus 08/07/20 08/07/20 17:25 18:20 WBC RBC Hgb Hct MCV MCH MCHC RDW Std Deviation RDW Coeff of [place] Plt Count MPV Immature Gran % (Auto) Neut % (Auto) Lymph % (Auto) [place] % (Auto) Eos % (Auto) Baso % (Auto) Absolute Neuts (auto) Absolute Lymphs (auto) Nucleated RBC % PT INR APTT Sodium Potassium Chloride Carbon Dioxide Anion Gap BUN Creatinine Estim Creat Clear Calc Est GFR (MDRD) Af Amer Est GFR (MDRD) Non-Af BUN/Creatinine Ratio Glucose Lactic Acid 2.7 H* Calcium Total Bilirubin AST ALT Alkaline Phosphatase Total Protein Albumin Globulin Albumin/Globulin Ratio Urine Color Yellow Urine Clarity Clear Urine pH 5.0 Ur Specific [place] 1.025 Urine Protein 30 H Urine Glucose (UA) 250 H Urine Ketones 15 H Urine Occult Blood 10 H Urine Nitrite Negative Urine Bilirubin Negative Urine Urobilinogen Normal Ur Leukocyte Esterase Negative Urine RBC 5-10 SEEN Urine WBC 0 SEEN Ur Squamous Epith Cells 0-5 SEEN Urine Bacteria 0 SEEN Urine Mucus 1+ Radiology Impression Brain CT 08/07/20 17:28 IMPRESSION: No acute intracranial findings or changes. Negative for hemorrhage, hematoma or extra-axial fluid collection. Stable mild involutional changes. Electronically Signed: Matilda Nichols MD at 18:05 EDT , Service support , Chest X-Ray 08/07/20 17:42 IMPRESSION: Limited inspiration with mild generalized bibasilar atelectatic changes without other acute cardiopulmonary findings. Electronically Signed: Matilda Nichols MD at 18:06 EDT , Service support , Assessment & Plan Assessment/Plan (1) CVA (cerebral vascular accident): QUALIFIERS: CVA mechanism: unspecified Qualified Code(s): I63.9 - Cerebral infarction, unspecified (2) Aspiration pneumonitis: PLAN: Acute CVA Brain CT without any acute pathology. Actual brain CT image was independently interpreted and I are agree with radiologist interpretation. Discussed case with patient and family. The original plan was to admit patient into physical therapy; occupational therapy and speech therapy without any MRI or echocardiogram. However patient did not want any further interventions. Discussed with family and emergency department doctor. Family is considering hospice. Emergency department doctor to consult hospice from the ED. Aspiration pneumonitis Impression of chest x-ray by radiologist: Limited inspiration with mild generalized bibasilar atelectatic changes without other acute cardiopulmonary findings. Actual chest x-ray image was independently interpreted and I agree with the latest interpretation. Lung side rhonchorous. Imaging department labs reviewed showed lactic acidosis with lactic of 2.7 like secondary to hypoxia. Patient was on Venturi mask at emergency department and was requiring the mask be removed. Later on family reported that patient to be okay with and is prone oxygen. Started on Zosyn at emergency department. Emergency department doctor to consult hospice at this time.
[2020-08-07 21:42] LABS: Reflex Lactate? Y
[2020-08-07] MEDS: Ondansetron 4 MG/2 ML Vial IV (23:52)
[2020-08-07] MEDS: Morphine 4 MG/ML Syringe IV (23:53)
[2020-08-08 00:25] VITALS: BP 109/76
--- NOTE | 2020-08-08 00:31 | ED.RN ---
[facility].
== END 2020-08-08 00:31 | disposition home or self-care (01) ==
LOC: ED 18:47 → PCU 20:10 → ED 08-08 00:28
PROVIDERS: Emergency Provider Emergency Medicine; PCP Internal Medicine
DX: J69.0 Pneumonitis due to inhalation of food and vomit (principal); J96.01 Acute respiratory failure with hypoxia; A41.9 Sepsis, unspecified organism; R65.20 Severe sepsis without septic shock; E87.2 Acidosis; G81.94 Hemiplegia, unspecified affecting left nondominant side; N17.9 Acute kidney failure, unspecified; R00.0 Tachycardia, unspecified; Z66 Do not resuscitate; E11.22 Type 2 diabetes mellitus with diabetic chronic kidney disease; E78.5 Hyperlipidemia, unspecified; F03.90 Unspecified dementia, unspecified severity, without behavioral disturbance, psychotic disturbance, mood disturbance, and anxiety; G40.909 Epilepsy, unspecified, not intractable, without status epilepticus; I25.10 Atherosclerotic heart disease of native coronary artery without angina pectoris; I67.1 Cerebral aneurysm, nonruptured; F31.9 Bipolar disorder, unspecified; N18.30 Chronic kidney disease, stage 3 unspecified; Z86.73 Personal history of transient ischemic attack (TIA), and cerebral infarction without residual deficits; Z85.46 Personal history of malignant neoplasm of prostate; Z79.4 Long term (current) use of insulin; Z79.82 Long term (current) use of aspirin; Z79.899 Other long term (current) drug therapy; Z87.891 Personal history of nicotine dependence
CPT/HCPCS: 70450; 71045; 80053; 81001; 83605; 85025; 85610; 85730; 87040; 87086; 87149; 87426; 93005; 96365; 96375; 99285; A4216; J2405